=== PATIENT | female | born 1975 | race American Indian/Alaskan Native ===

== ENCOUNTER 2020-02-03 20:35 | Emergency (ER) | payer MEDICAID ==
[~2020-02-03] VITALS: Ht 165.1 cm; Wt 82.9 kg
[2020-02-03 21:20] VITALS: BP 153/97
[2020-02-03 21:34] LABS: BASOPHILS % (AUTO) 0.4 % (0-1); EOSINOPHILS % (AUTO) 0.3 % (0-6); HEMATOCRIT 46.8 % (35.0-45.0); HEMOGLOBIN 15.4 g/dl (12.0-16.0); LYMPHOCYTES # (AUTO) 1.3 X10'3 (1.1-4.8); LYMPHOCYTES % (AUTO) 15.5 % (21-51); MEAN CORPUSCULAR HEMOGLOBIN 28.6 PG (27.0-31.0); MEAN CORPUSCULAR HGB CONC 32.8 g/dL (33.0-36.5); MEAN CORPUSCULAR VOLUME 87.1 FL (78-98); MEAN PLATELET VOLUME 9.6 FL (7.4-10.4); MONOCYTES # (AUTO) 0.5 X10'3 (0-0.9); MONOCYTES % (AUTO) 5.7 % (2-12); NEUTROPHILS # (AUTO) 6.6 X10'3 (1.8-7.7); NEUTROPHILS % (AUTO) 78.1 % (42-75); PLATELET COUNT 254 X10'3 (140-440); RED BLOOD COUNT 5.38 X10'6 (4.20-5.60); RED CELL DISTRIBUTION WIDTH 14.6 % (11.5-14.5); WHITE BLOOD COUNT 8.5 X10'3 (4.5-11.0)
[2020-02-03 21:50] LABS: ALANINE AMINOTRANSFERASE 15 U/L (12-78); ALBUMIN 3.6 G/DL (3.4-5.0); ALBUMIN/GLOBULIN RATIO 0.8 (1.1-1.5); ALKALINE PHOSPHATASE 89 IU/L (46-116); AMYLASE 38 U/L (25-115); ANION GAP 9 (8-16); ASPARTATE AMINO TRANSFERASE 17 U/L (10-37); BILIRUBIN,TOTAL 0.4 MG/DL (0.1-1.0); BLOOD UREA NITROGEN 11 MG/DL (7-18); BUN/CREATININE RATIO 10.2 (6.6-38.0); CALCIUM 9.9 MG/DL (8.5-10.1); CHLORIDE 106 MMOL/L (99-107); CREATININE 1.08 MG/DL (0.40-0.90); GLUCOSE 111 MG/DL (70-104); LIPASE 192 U/L (73-393); POTASSIUM 3.3 MMOL/L (3.5-5.1); SODIUM 144 MMOL/L (135-145); TOTAL CARBON DIOXIDE 29.1 MMOL/L (24-32); TOTAL PROTEIN 8.2 G/DL (6.4-8.2); eGFR 55 ML/MIN
[2020-02-03 22:02] LABS: HCG SERUM QL NEGATIVE
--- NOTE | 2020-02-03 22:20 | NUR ---
asked pt if she could provide a urine test to check for and changes of a UTI, pt states "i haven't peed in 2 days, i cant keep anything down" she then get's up and grabs her purse and walks away despite being encouraged to wait for a doctor to see her. Pt continues to walk away. Dr. Montgomery and RACHEL Bearden made aware. Pt left without being seen.
== END 2020-02-03 22:23 | disposition left against medical advice (07) ==
LOC: ER 20:36
DX: R10.9 Unspecified abdominal pain (principal); R11.10 Vomiting, unspecified; Z53.21 Procedure and treatment not carried out due to patient leaving prior to being seen by health care provider
CPT/HCPCS: 36415; 80053; 82150; 83690; 84703; 85025; 85610

== ENCOUNTER 2020-03-17 12:23 | Inpatient (IN) | payer MEDICAID ==
[~2020-03-17] VITALS: Ht 162.6 cm; Wt 88.3 kg
[2020-03-17 13:05] LABS: BASOPHILS % (AUTO) 0.1 % (0-1); EOSINOPHILS % (AUTO) 0 % (0-6); HEMATOCRIT 55.4 % (35.0-45.0); LYMPHOCYTES % (AUTO) 6.8 % (21-51); MEAN CORPUSCULAR HEMOGLOBIN 29.1 PG (27.0-31.0); MEAN CORPUSCULAR HGB CONC 33.7 g/dL (33.0-36.5); MEAN CORPUSCULAR VOLUME 86.5 FL (78-98); MONOCYTES # (AUTO) 0.6 X10'3 (0-0.9); MONOCYTES % (AUTO) 4.2 % (2-12); NEUTROPHILS # (AUTO) 12.6 X10'3 (1.8-7.7); NEUTROPHILS % (AUTO) 88.9 % (42-75); PLATELET COUNT 346 X10'3 (140-440); RED BLOOD COUNT 6.41 X10'6 (4.20-5.60); RED CELL DISTRIBUTION WIDTH 14.3 % (11.5-14.5); WHITE BLOOD COUNT 14.2 X10'3 (4.5-11.0)
[2020-03-17 13:09] LABS: HEMOGLOBIN 18.7 g/dl (12.0-16.0)
[2020-03-17 13:19] LABS: ALANINE AMINOTRANSFERASE 17 U/L (12-78); ALBUMIN 3.5 G/DL (3.4-5.0); ALBUMIN/GLOBULIN RATIO 0.7 (1.1-1.5); ALKALINE PHOSPHATASE 93 IU/L (46-116); ANION GAP 16 (8-16); ASPARTATE AMINO TRANSFERASE 37 U/L (10-37); BILIRUBIN,TOTAL 1.5 MG/DL (0.1-1.0); BLOOD UREA NITROGEN 68 MG/DL (7-18); CALCIUM 8.9 MG/DL (8.5-10.1); CHLORIDE 75 MMOL/L (99-107); CREATININE 4.26 MG/DL (0.40-0.90); GLUCOSE 159 MG/DL (70-104); SODIUM 130 MMOL/L (135-145); TOTAL CARBON DIOXIDE 39.2 MMOL/L (24-32); TOTAL PROTEIN 8.5 G/DL (6.4-8.2); eGFR 11 ML/MIN
[2020-03-17 13:23] LABS: POTASSIUM 2.3 MMOL/L (3.5-5.1)
[2020-03-17] MEDS ORDERED: ondansetron/PF 4mg/2ml inj IV ONE (13:30)
[2020-03-17] MEDS ORDERED: pantoprazole 40 MG vial IV ONE (13:30)
[2020-03-17] MEDS ORDERED: morphine 2 MG/ML inj. syringe IV PRN ×2 (13:30→19:45)
[2020-03-17] MEDS ORDERED: normal saline 1000ML IV soln IV ONE ×2 (13:30→18:15)
[2020-03-17] MEDS ORDERED: morphine 4 MG/ML inj SYRINge IV ONE (13:30)
[2020-03-17] MEDS ORDERED: piperacillin/tazo 3.375gm/50ml 50 ML IV ONE (13:40)
[2020-03-17] MEDS ORDERED: potassium Cl 10 mEq/100mL bag IV ONE ×2 (13:40→19:10)
[2020-03-17] MEDS ORDERED: potassium CL 10mEq/100ml bag 100 ML IV PRN (19:45)
[2020-03-17] MEDS ORDERED: magnesium hydroxide 30ml (MOM) UD suspension PO PRN (19:45)
[2020-03-17] MEDS ORDERED: acetaminophen 325mg tablet PO PRN (19:45)
[2020-03-17] MEDS ORDERED: magnesium 2GM in 50ml NS 50 ML IV PRN (19:45)
[2020-03-17] MEDS ORDERED: potassium Cl 20 mEq SR tablet PO PRN ×2 (19:45)
[2020-03-17] MEDS ORDERED: mag hydrox/Alum hydrox/simeth 30ml oral suspension PO PRN (19:45)
[2020-03-17] MEDS ORDERED: magnesium Cl slow-release 64mg tablet PO PRN (19:45)
[2020-03-17] MEDS ORDERED: magnesium 4gm in 100ml NS 100 ML IV PRN (19:45)
[2020-03-17] MEDS ORDERED: ondansetron/PF 4mg/2ml inj IV PRN (19:45)
[2020-03-17] MEDS: K and/or MAG REPLACEMENT MC SCH (20:00)
[2020-03-17] MEDS ORDERED: potassium Cl 10 mEq/100mL bag IV SCH (20:15)
[2020-03-17 20:58] LABS: BASOPHILS % (AUTO) 0.1 % (0-1); EOSINOPHILS % (AUTO) 0 % (0-6); HEMATOCRIT 48.9 % (35.0-45.0); HEMOGLOBIN 16.2 g/dl (12.0-16.0); LYMPHOCYTES # (AUTO) 1.2 X10'3 (1.1-4.8); LYMPHOCYTES % (AUTO) 5.7 % (21-51); MEAN CORPUSCULAR HEMOGLOBIN 28.7 PG (27.0-31.0); MEAN CORPUSCULAR HGB CONC 33.1 g/dL (33.0-36.5); MEAN CORPUSCULAR VOLUME 86.9 FL (78-98); MONOCYTES # (AUTO) 1.7 X10'3 (0-0.9); MONOCYTES % (AUTO) 8.2 % (2-12); NEUTROPHILS # (AUTO) 18.1 X10'3 (1.8-7.7); PLATELET COUNT 282 X10'3 (140-440); RED BLOOD COUNT 5.63 X10'6 (4.20-5.60); WHITE BLOOD COUNT 21.1 X10'3 (4.5-11.0)
[2020-03-17 21:15] LABS: ALANINE AMINOTRANSFERASE 57 U/L (12-78); ALBUMIN 2.6 G/DL (3.4-5.0); ALBUMIN/GLOBULIN RATIO 0.7 (1.1-1.5); ALKALINE PHOSPHATASE 72 IU/L (46-116); ANION GAP 10 (8-16); ASPARTATE AMINO TRANSFERASE 117 U/L (10-37); BLOOD UREA NITROGEN 67 MG/DL (7-18); CALCIUM 7.2 MG/DL (8.5-10.1); CHLORIDE 91 MMOL/L (99-107); CREATININE 3.73 MG/DL (0.40-0.90); GLUCOSE 98 MG/DL (70-104); SODIUM 134 MMOL/L (135-145); TOTAL CARBON DIOXIDE 32.7 MMOL/L (24-32); TOTAL PROTEIN 6.2 G/DL (6.4-8.2); eGFR 13 ML/MIN
[2020-03-17] MEDS: normal saline 1000ml 1,000 ML IV SCH (21:45)
--- NOTE | 2020-03-17 21:45 | NUR ---
Patient in room PCU 3014. I have received report from SHANDA RAMOS FROM ED and had the opportunity to ask questions and assume patient care.
[2020-03-17 22:00] VITALS: BP 109/72
[2020-03-17] MEDS: potassium CL 10mEq/100ml bag 100 ML IV PRN ×2 (22:08→23:55)
[2020-03-18] VITALS (15 sets, daily range): BP systolic 96–175; BP diastolic 56–99
[2020-03-18] MEDS: potassium CL 10mEq/100ml bag 100 ML IV PRN ×3 (02:38→09:10)
[2020-03-18 06:10] LABS: BASOPHILS % (AUTO) 0.1 % (0-1); EOSINOPHILS % (AUTO) 0.1 % (0-6); HEMATOCRIT 43.3 % (35.0-45.0); HEMOGLOBIN 14.3 g/dl (12.0-16.0); LYMPHOCYTES # (AUTO) 1.1 X10'3 (1.1-4.8); LYMPHOCYTES % (AUTO) 6.2 % (21-51); MEAN CORPUSCULAR HGB CONC 33.2 g/dL (33.0-36.5); MEAN CORPUSCULAR VOLUME 87.4 FL (78-98); MONOCYTES # (AUTO) 1.3 X10'3 (0-0.9); MONOCYTES % (AUTO) 7.2 % (2-12); NEUTROPHILS # (AUTO) 15.4 X10'3 (1.8-7.7); NEUTROPHILS % (AUTO) 86.4 % (42-75); PLATELET COUNT 247 X10'3 (140-440); RED BLOOD COUNT 4.95 X10'6 (4.20-5.60); RED CELL DISTRIBUTION WIDTH 14.2 % (11.5-14.5); WHITE BLOOD COUNT 17.8 X10'3 (4.5-11.0)
--- NOTE | 2020-03-18 06:14 | NUR ---
Problems reprioritized. Patient report given, questions answered & plan of care reviewed with JACQUELINE RAMOS.
[2020-03-18 06:23] LABS: ALANINE AMINOTRANSFERASE 59 U/L (12-78); ALBUMIN 2.2 G/DL (3.4-5.0); ALBUMIN/GLOBULIN RATIO 0.7 (1.1-1.5); ALKALINE PHOSPHATASE 61 IU/L (46-116); ANION GAP 12 (8-16); ASPARTATE AMINO TRANSFERASE 121 U/L (10-37); BILIRUBIN,TOTAL 0.9 MG/DL (0.1-1.0); BLOOD UREA NITROGEN 71 MG/DL (7-18); BUN/CREATININE RATIO 17.8 (6.6-38.0); CALCIUM 7.4 MG/DL (8.5-10.1); CHLORIDE 92 MMOL/L (99-107); GLUCOSE 92 MG/DL (70-104); MAGNESIUM 2.2 MG/DL (1.5-2.4); SODIUM 135 MMOL/L (135-145); TOTAL CARBON DIOXIDE 30.8 MMOL/L (24-32); TOTAL PROTEIN 5.5 G/DL (6.4-8.2); eGFR 12 ML/MIN
--- NOTE | 2020-03-18 06:26 | NUR ---
[place]rientee documentation: I have reviewed and agree with all interventions, assessments performed and documented by Abebe RAMOS. [place] Medication Administration: For this medication-pass time frame, all medication were reviewed, dispensed, administered and documented per hospital policy by Abebe RAMOS.
--- NOTE | 2020-03-18 06:32 | NUR ---
Patient in room PCU 3014. I have received report from Ciara RN/Abebe RN and had the opportunity to ask questions and assume patient care. Pt sleeping comfortably at change of shift.
--- NOTE | 2020-03-18 06:39 | NUR ---
Paged Dr Villela re: critical K+ 3.0 PAGER ID: [phone] MESSAGE: Harry Ma [id number] Critical am K+ 3.0, same as 03/17 pm draw K+ 3.0, I will continue with replacement protocol. Thanks Apryl Cabrera [phone]
[2020-03-18] MEDS: normal saline 1000ml 1,000 ML IV SCH ×2 (07:56→22:10)
[2020-03-18] MEDS: K and/or MAG REPLACEMENT MC SCH ×2 (08:02→20:00)
[2020-03-18] MEDS ORDERED: LIDOcaine Viscous 15ml cup ONE (10:25)
[2020-03-18] MEDS ORDERED: MIDAZolam 5mg/5ml vial ONE ×2 (10:25→15:29)
[2020-03-18] MEDS ORDERED: fentaNYL/PF 50MCG/1 ML 2ML syringe ONE (10:25)
[2020-03-18] MEDS ORDERED: OMEP20TA5 PO (11:52)
[2020-03-18] MEDS ORDERED: LISI1TAB51 PO (11:52)
[2020-03-18] MEDS ORDERED: ONDA4TAB6 PO (11:52)
[2020-03-18] MEDS ORDERED: LIDOcaine 1% (10mg/ml) 2ml vial ONE (13:44)
--- NOTE | 2020-03-18 15:00 | NUR ---
Pt left for OR, pre op check list complete, report called to RACHEL Whaley.
[2020-03-18 15:20] LABS: PARTIAL THROMBOPLASTIN TIME 29 SECONDS (22-32)
[2020-03-18] MEDS ORDERED: fentaNYL /PF 50mcg/ml 5ml ampule ONE ×2 (15:29→20:44)
[2020-03-18] MEDS ORDERED: rocuronium 10mg/ml inj IV ONE ×4 (15:31→21:35)
--- NOTE | 2020-03-18 15:41 | NUR ---
Attempted to place extended PIV for blood draws prior to pt going to OR. Pt veins not compatible with extended or midline as vessels are too deep and too small. Blood draw completed during attempt. Apryl RAMOS notified Cordelia Steel PICC RN
[2020-03-18] MEDS ORDERED: NORepinephrine 1 mg/ml inj IV ONE (16:05)
[2020-03-18] MEDS ORDERED: NORepinephrine 8 MG in NS 250ml IV soln IV SCH (16:10)
[2020-03-18] MEDS ORDERED: propofol inj 20 ML IV ONE (16:25)
[2020-03-18] MEDS ORDERED: albumin (Human) 5% 250ml 250 ML IV ONE ×2 (16:34)
--- NOTE | 2020-03-18 16:46 | NUR ---
Malnutrition consult. Current wt as 77 kg (no wt method), documented weight January 2020 82 kg on chair scale. No diet, only ice chips. Pending karly fundoplication. Presented with gastric outlet obstruction secondary to volvulus per H&P. Has been vomiting when eating and having abdominal pain both likely contributing to acute poor appetite and poor PO intake. Recommend new weight for accurate assessment of wt loss. Addendum: 03/18/20 at [address] Amended: Links added.
[2020-03-18] MEDS: clindamycin phosphate 150mg/ml inj. ONE ×2 (17:02→20:01)
[2020-03-18] MEDS: gentamicin 40 MG/1 ML inj ONE ×2 (17:02→20:02)
[2020-03-18] MEDS ORDERED: ringers solution, lacted 1,000 ML IV SCH (17:16)
[2020-03-18] MEDS ORDERED: HYDROmorphone inj. 0.5 MG/0.5 ML DISP.SYRIN IV PRN (17:20)
[2020-03-18] MEDS ORDERED: NORepinephrine 8mg/ 250ml NS 250 ML IV SCH (17:20)
[2020-03-18] MEDS ORDERED: fentaNYL/PF 50MCG/1 ML 2ML syringe IV PRN (17:20)
[2020-03-18] MEDS ORDERED: morphine 4 MG/ML inj SYRINge IV PRN (17:20)
[2020-03-18] MEDS ORDERED: morphine 2 MG/ML inj. syringe IV PRN (17:20)
[2020-03-18] MEDS ORDERED: ondansetron/PF 4mg/2ml inj IV PRN (17:20)
--- NOTE | 2020-03-18 18:12 | NUR ---
Problems reprioritized. Patient report given, questions answered & plan of care reviewed with RACHEL Urbina/Abebe RN. Informed nurses that patient is currently in OR.
--- NOTE | 2020-03-18 21:22 | NUR ---
Received to room 2007, accompanied by anesthesia and surgical crew. Placed on ventilator, to court monitor, arterial line and CVP pressure monitored. Santos cath to gravity drainage. Dressings are dry and intact. See assessment record. All drugs are infusing via central line.
[2020-03-18] MEDS: FENTANYL-0.9 % NACL/PF 100 ML IV PRN (21:44)
[2020-03-18] MEDS: midazolam 100mg in NS 100ml 100 ML IV SCH (21:44)
[2020-03-18] MEDS: NORepinephrine 8mg/ 250ml NS 250 ML IV SCH (22:07)
[2020-03-18 22:11] LABS: ABG BASE EXCESS -1.6 mmol/L (-2.0-2.0); ABG HCO3 22.7 mmol/L (22.0-26.0); ABG OXYGEN SATURATION 98.9 % (94-97); ABG PCO2 (T) 36.6 mmHg (32.0-45.0); ABG PO2 (T) 208.5 mmHg (75.0-100.0); FCOHb 0.3 % (0.0-3.9); FMetHb 0.3 % (0.0-1.5); FO2Hb 98.3 % (94-97); PATIENT TEMPERATURE 36.7; PEEP 5 cm H2O; RESPIRATORY RATE 10 b/min; TIDAL VOLUME 600 mL; TOTAL HEMOGLOBIN 13.3 G/dl (12.0-16.0)
[2020-03-18] MEDS ORDERED: dextrose ORAL solution 15 GM/59 ML bottle PO PRN ×2 (23:10)
[2020-03-18] MEDS ORDERED: glucagon, human recombinant 1mg kit SUBCUT PRN (23:10)
[2020-03-18] MEDS ORDERED: dextrose 50%-water 50ml dispensing syringe IV PRN ×2 (23:10)
[2020-03-18] MEDS ORDERED: insulin Lispro (HumaLOG) vial - multi-dose SQ SCH (23:10)
[2020-03-18] MEDS ORDERED: MESSAGE TO PHARMACY PO ONE (23:10)
[2020-03-19] VITALS (23 sets, daily range): BP systolic 50–118; BP diastolic 42–79
[2020-03-19 01:17] LABS: BASOPHILS % (AUTO) 0.1 % (0-1); EOSINOPHILS % (AUTO) 0 % (0-6); HEMATOCRIT 35.8 % (35.0-45.0); HEMOGLOBIN 11.9 g/dl (12.0-16.0); LYMPHOCYTES # (AUTO) 0.9 X10'3 (1.1-4.8); LYMPHOCYTES % (AUTO) 6.9 % (21-51); MEAN CORPUSCULAR HEMOGLOBIN 28.8 PG (27.0-31.0); MEAN CORPUSCULAR HGB CONC 33.2 g/dL (33.0-36.5); MEAN PLATELET VOLUME 10.1 FL (7.4-10.4); MONOCYTES # (AUTO) 0.5 X10'3 (0-0.9); MONOCYTES % (AUTO) 3.8 % (2-12); NEUTROPHILS # (AUTO) 10.9 X10'3 (1.8-7.7); NEUTROPHILS % (AUTO) 89.2 % (42-75); PLATELET COUNT 200 X10'3 (140-440); RED BLOOD COUNT 4.11 X10'6 (4.20-5.60); RED CELL DISTRIBUTION WIDTH 14.1 % (11.5-14.5); WHITE BLOOD COUNT 12.3 X10'3 (4.5-11.0)
[2020-03-19] MEDS: piperacillin/tazo 3.375gm/50ml 50 ML IV SCH ×3 (01:23→17:10)
[2020-03-19] MEDS: pantoprazole 40MG/NS 100ML BAG 100 ML IV SCH ×2 (01:23→05:41)
[2020-03-19] MEDS: dextrose 5%-1/2 normal saline 1,000 ML IV SCH ×3 (01:23→17:10)
[2020-03-19 01:33] LABS: ALANINE AMINOTRANSFERASE 52 U/L (12-78); ALBUMIN/GLOBULIN RATIO 0.8 (1.1-1.5); ALKALINE PHOSPHATASE 43 IU/L (46-116); ANION GAP 8 (8-16); ASPARTATE AMINO TRANSFERASE 80 U/L (10-37); BILIRUBIN,TOTAL 0.7 MG/DL (0.1-1.0); BLOOD UREA NITROGEN 61 MG/DL (7-18); BUN/CREATININE RATIO 19.4 (6.6-38.0); CALCIUM 7.1 MG/DL (8.5-10.1); CHLORIDE 101 MMOL/L (99-107); CREATININE 3.14 MG/DL (0.40-0.90); GLUCOSE 132 MG/DL (70-104); MAGNESIUM 1.7 MG/DL (1.5-2.4); PHOSPHORUS 4.6 MG/DL (2.3-4.5); SODIUM 136 MMOL/L (135-145); TOTAL CARBON DIOXIDE 26.8 MMOL/L (24-32); TOTAL PROTEIN 4.4 G/DL (6.4-8.2); eGFR 16 ML/MIN
[2020-03-19 01:35] LABS: POTASSIUM 2.8 MMOL/L (3.5-5.1)
[2020-03-19] MEDS ORDERED: magnesium 4gm in 100ml NS 100 ML IV PRN (01:40)
[2020-03-19] MEDS ORDERED: magnesium 2GM in 50ml NS 50 ML IV PRN (01:40)
[2020-03-19] MEDS: potassium Cl 20mEq/100mL bag 100 ML IV PRN ×4 (02:03→07:24)
[2020-03-19] MEDS: FENTANYL-0.9 % NACL/PF 100 ML IV PRN ×2 (02:10→09:21)
[2020-03-19 02:35] LABS: ABG BASE EXCESS 3.3 mmol/L (-2.0-2.0); ABG HCO3 26.5 mmol/L (22.0-26.0); ABG OXYGEN SATURATION 97.9 % (94-97); ABG PCO2 (T) 35.2 mmHg (32.0-45.0); ABG PO2 (T) 111.4 mmHg (75.0-100.0); FCOHb 0.1 % (0.0-3.9); FMetHb 0.2 % (0.0-1.5); FO2Hb 97.6 % (94-97); PATIENT TEMPERATURE 36.8; PEEP 5 cm H2O; TOTAL HEMOGLOBIN 12.9 G/dl (12.0-16.0)
--- NOTE | 2020-03-19 06:30 | NUR ---
Problems reprioritized. Patient report given, questions answered & plan of care reviewed with Emani RAMOS.
--- NOTE | 2020-03-19 06:30 | NUR ---
Patient in room CICU 2006. I have received report from Selina RAMOS and had the opportunity to ask questions and assume patient care.
[2020-03-19] MEDS: K and/or MAG REPLACEMENT MC SCH ×2 (08:00→19:40)
[2020-03-19] MEDS: midazolam 100mg in NS 100ml 100 ML IV SCH (08:15)
[2020-03-19] MEDS: NORepinephrine 8mg/ 250ml NS 250 ML IV SCH ×2 (08:16→19:18)
[2020-03-19] MEDS ORDERED: albumin (Human) 5% 250ml 250 ML IV ONE (13:45)
[2020-03-19 13:54] LABS: ALANINE AMINOTRANSFERASE 41 U/L (12-78); ALBUMIN 1.8 G/DL (3.4-5.0); ALBUMIN/GLOBULIN RATIO 0.6 (1.1-1.5); ALKALINE PHOSPHATASE 50 IU/L (46-116); ANION GAP 8 (8-16); ASPARTATE AMINO TRANSFERASE 63 U/L (10-37); BILIRUBIN,TOTAL 0.8 MG/DL (0.1-1.0); BLOOD UREA NITROGEN 54 MG/DL (7-18); BUN/CREATININE RATIO 17.4 (6.6-38.0); CALCIUM 7.3 MG/DL (8.5-10.1); CHLORIDE 102 MMOL/L (99-107); CREATININE 3.11 MG/DL (0.40-0.90); GLUCOSE 127 MG/DL (70-104); SODIUM 135 MMOL/L (135-145); TOTAL CARBON DIOXIDE 25.5 MMOL/L (24-32); TOTAL PROTEIN 4.6 G/DL (6.4-8.2); eGFR 16 ML/MIN
[2020-03-19 13:57] LABS: POTASSIUM 4.1 MMOL/L (3.5-5.1)
[2020-03-19] MEDS: dexmedetomidine/D5W 100mL 100 ML IV SCH (14:20)
--- NOTE | 2020-03-19 14:33 | NUR ---
TPN consult/malnutrition consult f/u: New scaled weight was obtained, pt currently 84.2 kg, this is +2.2 kg since January. Pt appears with no wt loss. No documented significant decrease in muscle strength or edema. Pt currently does not meet criteria for malnutrition. Pt admit for gastric outlet obstruction, volvulus, SHAWNA, and hypokalemia. Pt now s/p reduction of hiatal hernia with repair of diaphragmatic hernia, subtotal gastrectomy with retrocolic Charlene-en-Y reconstruction, Toupet partial posterior wrap, repair of incisional hernia, and jejunostomy placement. TPN recommendations below have been d/w clinical pharmacist. NG tube in place for suction. Will continue to follow closely. Recommendations: 1) Continuous 3:1 Clinimix-E 5/20 2L bag with 100 mL 20% intralipids with goal rate of 90 mL/hr to provide: 2160 mL total volume/day, 103 g AA, 411 g dextrose (dext load 3.39 mg/kg/min), 21 g lipids (10% kcal), and 2015 total kcal 2) Prealbumin and TG q Monday/ 3) Daily weights 4) Monitor renal labs and TPN tolerance 5) PO diet advancement as medically indicated per physician Addendum: 03/19/20 at [address] Amended: Links added.
[2020-03-19] MEDS ORDERED: Dextrose 10%-water IV solution 1,000 ML IV PRN (14:57)
[2020-03-19] MEDS: ipratropium/albuterol 3ml nebule NEB SCH ×3 (15:32→22:55)
--- NOTE | 2020-03-19 16:20 | NUR ---
TF Consult: Trickle JTF to start and remain at 10ml/hr per surgeon. Recs below. Will monitor for EN tolerance and bowel function post-op. TPN consult/malnutrition consult f/u: New scaled weight was obtained, pt currently 84.2 kg, this is +2.2 kg since January. Pt appears with no wt loss. No documented significant decrease in muscle strength or edema. Pt currently does not meet criteria for malnutrition. Pt admit for gastric outlet obstruction, volvulus, SHAWNA, and hypokalemia. Pt now s/p reduction of hiatal hernia with repair of diaphragmatic hernia, subtotal gastrectomy with retrocolic Charlene-en-Y reconstruction, Toupet partial posterior wrap, repair of incisional hernia, and jejunostomy placement. TPN recommendations below have been d/w clinical pharmacist. NG tube in place for suction. Will continue to follow closely. Recommendations: 1) Continuous 3:1 Clinimix-E 5/20 2L bag with 100 mL 20% intralipids with goal rate of 90 mL/hr to provide: 2160 mL total volume/day, 103 g AA, 411 g dextrose (dext load 3.39 mg/kg/min), 21 g lipids (10% kcal), and 2015 total kcal 2) Trickle JTF per surgeon at 10ml/hr using Vital High Protein; to provide 240ml fluid, 202ml free water, 240kcals, and 21g protein. 3) Prealbumin and TG q Monday/; daily wts 4) Monitor for EN/TPN tolerance w/ SHAWNA DX and s/p extensive GI surgery w/ J-tube placement 5) PO diet advancement as medically indicated per physician Addendum: 03/19/20 at [address] Amended: Links added.
[2020-03-19] MEDS ORDERED: POTASSIUM BICARB 20meq eff tab 20 MEQ TABLET.EFF PO PRN ×2 (17:40)
[2020-03-19] MEDS ORDERED: acetaminophen 325mg/10.15ml oral unit dose solution PO PRN (17:40)
--- NOTE | 2020-03-19 18:00 | NUR ---
Patient in room CICU 2006. I have received report from Mana RAMOS and had the opportunity to ask questions and assume patient care. Dr Rocha at the bedside assessing patient. No new orders rec'd.
--- NOTE | 2020-03-19 18:00 | NUR ---
[facility] ROBB Hutton called requesting information. Stated that I would need to clarify with family due to patient unable to sign release at this time. She states she is agreeable and provided her cell # [phone]. Unable to complete during shift, left message for next shift.
--- NOTE | 2020-03-19 18:45 | NUR ---
Problems reprioritized. Patient report given, questions answered & plan of care reviewed with Rubina RAMOS.
[2020-03-19] MEDS ORDERED: normal saline 1000ml 1,000 ML IV ONE (19:15)
[2020-03-19] MEDS: pantoprazole 40 MG vial IV SCH (20:21)
[2020-03-19] MEDS ORDERED: fat emulsion 20% IV 100 ML, MVI, adult No.4 with vit. K 10 ML, Trace element-5 inj. 1 M... IV SCH ×4 (21:00)
[2020-03-19] MEDS ORDERED: insulin glargine (Lantus) pen - multi-dose SQ SCH (21:00)
--- NOTE | 2020-03-19 23:34 | NUR ---
Spoke with family regarding PA in [facility] wanting information. The family states "do not give information to provider."
[2020-03-20] VITALS (23 sets, daily range): BP systolic 89–125; BP diastolic 41–70
[2020-03-20] MEDS: piperacillin/tazo 3.375gm/50ml 50 ML IV SCH ×4 (00:24→23:56)
[2020-03-20] MEDS: ipratropium/albuterol 3ml nebule NEB SCH ×6 (03:00→23:06)
[2020-03-20 03:20] LABS: BASOPHILS % (AUTO) 0.1 % (0-1); EOSINOPHILS % (AUTO) 0.1 % (0-6); HEMATOCRIT 30.3 % (35.0-45.0); HEMOGLOBIN 10.2 g/dl (12.0-16.0); LYMPHOCYTES # (AUTO) 1.1 X10'3 (1.1-4.8); LYMPHOCYTES % (AUTO) 6.6 % (21-51); MEAN CORPUSCULAR HEMOGLOBIN 29.7 PG (27.0-31.0); MEAN CORPUSCULAR HGB CONC 33.6 g/dL (33.0-36.5); MEAN CORPUSCULAR VOLUME 88.5 FL (78-98); MEAN PLATELET VOLUME 10.4 FL (7.4-10.4); MONOCYTES # (AUTO) 1.1 X10'3 (0-0.9); MONOCYTES % (AUTO) 6.5 % (2-12); NEUTROPHILS % (AUTO) 86.7 % (42-75); PLATELET COUNT 224 X10'3 (140-440); RED BLOOD COUNT 3.42 X10'6 (4.20-5.60); RED CELL DISTRIBUTION WIDTH 14.4 % (11.5-14.5); WHITE BLOOD COUNT 17.3 X10'3 (4.5-11.0)
[2020-03-20] MEDS: NORepinephrine 8mg/ 250ml NS 250 ML IV SCH ×3 (03:37→22:47)
[2020-03-20 03:39] LABS: ALANINE AMINOTRANSFERASE 33 U/L (12-78); ALBUMIN 1.8 G/DL (3.4-5.0); ALBUMIN/GLOBULIN RATIO 0.6 (1.1-1.5); ALKALINE PHOSPHATASE 47 IU/L (46-116); ANION GAP 7 (8-16); ASPARTATE AMINO TRANSFERASE 52 U/L (10-37); BILIRUBIN,TOTAL 0.5 MG/DL (0.1-1.0); BLOOD UREA NITROGEN 49 MG/DL (7-18); BUN/CREATININE RATIO 16.2 (6.6-38.0); CALCIUM 7.4 MG/DL (8.5-10.1); CHLORIDE 103 MMOL/L (99-107); CREATININE 3.02 MG/DL (0.40-0.90); GLUCOSE 172 MG/DL (70-104); MAGNESIUM 1.8 MG/DL (1.5-2.4); POTASSIUM 3.4 MMOL/L (3.5-5.1); PREALBUMIN 7.2 MG/DL (19-36); SODIUM 136 MMOL/L (135-145); TOTAL CARBON DIOXIDE 25.6 MMOL/L (24-32); TOTAL PROTEIN 4.7 G/DL (6.4-8.2); TRIGLYCERIDES 83 MG/DL (20-135); eGFR 17 ML/MIN
[2020-03-20 04:05] LABS: ABG BASE EXCESS 0.3 mmol/L (-2.0-2.0); ABG HCO3 23.6 mmol/L (22.0-26.0); ABG OXYGEN SATURATION 97.5 % (94-97); ABG PCO2 (T) 33.8 mmHg (32.0-45.0); ABG PO2 (T) 103.9 mmHg (75.0-100.0); FCOHb 0.3 % (0.0-3.9); FMetHb 0.1 % (0.0-1.5); FO2Hb 97.1 % (94-97); PATIENT TEMPERATURE 37.3; PEEP 5 cm H2O; RESPIRATORY RATE 10 b/min; TIDAL VOLUME 600 mL; TOTAL HEMOGLOBIN 10.7 G/dl (12.0-16.0)
[2020-03-20] MEDS: potassium Cl 20mEq/100mL bag 100 ML IV PRN ×2 (04:26→05:48)
[2020-03-20] MEDS: dexmedetomidine/D5W 100mL 100 ML IV SCH ×2 (06:38→13:31)
[2020-03-20] MEDS: FENTANYL-0.9 % NACL/PF 100 ML IV PRN ×2 (06:38→17:22)
[2020-03-20] MEDS: dextrose 5%-1/2 normal saline 1,000 ML IV SCH (06:57)
[2020-03-20] MEDS: K and/or MAG REPLACEMENT MC SCH ×2 (08:00→19:52)
[2020-03-20] MEDS: pantoprazole 40 MG vial IV SCH ×2 (08:50→19:54)
[2020-03-20] MEDS: diatr meglu/diatrizoate 30ml oral sol.-(3 dose) bottle PO SCH ×2 (11:23→21:00)
--- NOTE | 2020-03-20 15:23 | NUR ---
Radiologist called and asked me to report a small hydropneumothorax on CT scan. Called Dr Rocha, and he states thats from the surgery and the CT scan looks ok
[2020-03-20] MEDS ORDERED: glucagon, human recombinant 1mg kit SUBCUT PRN (15:25)
[2020-03-20] MEDS ORDERED: dextrose ORAL solution 15 GM/59 ML bottle PO PRN ×2 (15:25)
[2020-03-20] MEDS ORDERED: MESSAGE TO PHARMACY PO ONE (15:25)
[2020-03-20] MEDS ORDERED: insulin regular, human U-100 3ml vial - multi-dose SQ SCH (15:25)
[2020-03-20] MEDS ORDERED: dextrose 50%-water 50ml dispensing syringe IV PRN ×2 (15:25)
[2020-03-20] MEDS: fat emulsion 20% IV 100 ML, MVI, adult No.4 with vit. K 10 ML, Trace element-5 inj. 1 M... IV SCH ×4 (16:32)
[2020-03-20] MEDS: midazolam 100mg in NS 100ml 100 ML IV SCH (16:33)
--- NOTE | 2020-03-20 18:20 | NUR ---
Patient in room CICU 2006. I have received report from Rajat RAMOS and had the opportunity to ask questions and assume patient care.
[2020-03-20] MEDS: lactobacillus rhamnosus 10,000 MMU CELLS/CAPSULE PO SCH (19:52)
[2020-03-20] MEDS: insulin glargine (Lantus) pen - multi-dose SQ SCH (19:57)
[2020-03-20] MEDS ORDERED: diatr meglu/diatrizoate 30ml oral sol.-(3 dose) bottle PO SCH (21:00)
[2020-03-21] VITALS (24 sets, daily range): BP systolic 95–136; BP diastolic 42–96
[2020-03-21] MEDS: dexmedetomidine/D5W 100mL 100 ML IV SCH ×4 (02:04→21:19)
[2020-03-21] MEDS: ipratropium/albuterol 3ml nebule NEB SCH ×6 (03:21→23:00)
[2020-03-21 03:28] LABS: BASOPHILS % (AUTO) 0.2 % (0-1); EOSINOPHILS # (AUTO) 0.2 X10'3 (0-0.9); EOSINOPHILS % (AUTO) 1.6 % (0-6); HEMATOCRIT 27.5 % (35.0-45.0); LYMPHOCYTES # (AUTO) 1.1 X10'3 (1.1-4.8); LYMPHOCYTES % (AUTO) 7.9 % (21-51); MEAN CORPUSCULAR HEMOGLOBIN 28.9 PG (27.0-31.0); MEAN CORPUSCULAR HGB CONC 32.7 g/dL (33.0-36.5); MEAN CORPUSCULAR VOLUME 88.5 FL (78-98); MEAN PLATELET VOLUME 9.9 FL (7.4-10.4); MONOCYTES # (AUTO) 1.1 X10'3 (0-0.9); MONOCYTES % (AUTO) 8.2 % (2-12); NEUTROPHILS # (AUTO) 11.5 X10'3 (1.8-7.7); NEUTROPHILS % (AUTO) 82.1 % (42-75); PLATELET COUNT 208 X10'3 (140-440); RED BLOOD COUNT 3.11 X10'6 (4.20-5.60); RED CELL DISTRIBUTION WIDTH 14.3 % (11.5-14.5); WHITE BLOOD COUNT 13.9 X10'3 (4.5-11.0)
[2020-03-21 03:37] LABS: ALANINE AMINOTRANSFERASE 27 U/L (12-78); ALBUMIN 1.5 G/DL (3.4-5.0); ALBUMIN/GLOBULIN RATIO 0.5 (1.1-1.5); ALKALINE PHOSPHATASE 56 IU/L (46-116); ANION GAP 7 (8-16); ASPARTATE AMINO TRANSFERASE 38 U/L (10-37); BILIRUBIN,TOTAL 0.4 MG/DL (0.1-1.0); BLOOD UREA NITROGEN 43 MG/DL (7-18); BUN/CREATININE RATIO 17.9 (6.6-38.0); CALCIUM 7.5 MG/DL (8.5-10.1); CHLORIDE 104 MMOL/L (99-107); GLUCOSE 157 MG/DL (70-104); MAGNESIUM 1.7 MG/DL (1.5-2.4); POTASSIUM 3.5 MMOL/L (3.5-5.1); SODIUM 136 MMOL/L (135-145); TOTAL CARBON DIOXIDE 24.8 MMOL/L (24-32); TOTAL PROTEIN 4.8 G/DL (6.4-8.2); eGFR 22 ML/MIN
[2020-03-21] MEDS: FENTANYL-0.9 % NACL/PF 100 ML IV PRN (03:54)
[2020-03-21 03:55] LABS: ABG BASE EXCESS -1.7 mmol/L (-2.0-2.0); ABG HCO3 22.2 mmol/L (22.0-26.0); ABG OXYGEN SATURATION 96.9 % (94-97); ABG PCO2 (T) 34.4 mmHg (32.0-45.0); ABG PO2 (T) 90.7 mmHg (75.0-100.0); FCOHb 0.3 % (0.0-3.9); FMetHb 0.3 % (0.0-1.5); FO2Hb 96.3 % (94-97); PATIENT TEMPERATURE 36.9; PEEP 5 cm H2O; RESPIRATORY RATE 10 b/min; TIDAL VOLUME 600 mL; TOTAL HEMOGLOBIN 9.7 G/dl (12.0-16.0)
[2020-03-21] MEDS: pantoprazole 40 MG vial IV SCH ×2 (07:58→20:00)
[2020-03-21] MEDS: piperacillin/tazo 3.375gm/50ml 50 ML IV SCH ×2 (07:58→16:08)
[2020-03-21] MEDS: lactobacillus rhamnosus 10,000 MMU CELLS/CAPSULE PO SCH (07:59)
[2020-03-21] MEDS: K and/or MAG REPLACEMENT MC SCH ×2 (07:59→20:00)
[2020-03-21 10:03] LABS: CLARITY,URINE CLOUDY (Clear); COLOR,URINE YELLOW (Yellow); GLUCOSE, URINE 250 mg/dl (Neg); KETONES,URINE NEGATIVE (Neg); LEUKOCYTE ESTERASE ,URINE SMALL (Neg); NITRITES, URINE NEGATIVE (Neg); OCCULT BLOOD,URINE MODERATE (Neg); PROTEIN,URINE TRACE mg/dl (Neg); UROBILINOGEN,URINE 0.2 E.U/dL (0.2-1.0)
[2020-03-21 10:15] LABS: UA COLLECTION TYPE FOLEY CATH
[2020-03-21 10:16] LABS: BACTERIA,URINE NONE SEEN /HPF (Neg); MUCUS STRANDS FEW /LPF (Neg); RENAL CELLS, URINE MODERATE /HPF; SQUAMOUS EPITHELIAL CELL,UR FEW /LPF (FEW); URIC ACID CRYSTALS 1+ /HPF (NEGATIVE); YEAST MANY /HPF (NEGATIVE)
[2020-03-21 10:40] LABS: UA EOSINOPHILS NO EOS /HPF
[2020-03-21] MEDS ORDERED: naloxone 0.4 mg/ml inj IV PRN (12:35)
[2020-03-21] MEDS ORDERED: CADD PCA waste documentation MC PRN (12:35)
[2020-03-21] MEDS ORDERED: HYDROmorphone/NS 1 mg/ml CADD 50 ML IV SCH (13:00)
--- NOTE | 2020-03-21 13:04 | NUR ---
Tube feed increased to 20 per MD orders
[2020-03-21] MEDS ORDERED: acetaminophen 325mg/10.15ml oral unit dose solution JT PRN (13:18)
[2020-03-21] MEDS ORDERED: dextrose ORAL solution 15 GM/59 ML bottle JT PRN ×2 (13:18)
[2020-03-21] MEDS ORDERED: mag hydrox/Alum hydrox/simeth 30ml oral suspension JT PRN (13:19)
[2020-03-21] MEDS ORDERED: magnesium hydroxide 30ml (MOM) UD suspension JT PRN (13:20)
--- NOTE | 2020-03-21 14:45 | NUR ---
Patient extubated per MD orders. Placed on room air and saturating 100%. Patient still not following directions and at risk of pulling out lines and tubes. Will leave restraints on for now
--- NOTE | 2020-03-21 15:00 | NUR ---
patient going back and forth between apologizing and threatening with abusive foul language. Patient is oriented to self and place. Patient is anxious and agitated, with periods of crying, and intermittently trying to attack staff. notified. restraints still on for safety Addendum: 03/21/20 at 1707 by Rajat Degroot RN Patient is deniz Addendum: 03/21/20 at 1707 by Rajat Degroot RN Patient is manipulative, stating shes my friend, and then trying to hit me after i take one restraint off
[2020-03-21] MEDS: HYDROmorphone/NS 1 mg/ml CADD 50 ML IV SCH ×5 (15:30→23:00)
[2020-03-21] MEDS: fat emulsion 20% IV 100 ML, MVI, adult No.4 with vit. K 10 ML, Trace element-5 inj. 1 M... IV SCH ×4 (16:08)
[2020-03-21] MEDS: NORepinephrine 8mg/ 250ml NS 250 ML IV SCH (16:11)
[2020-03-21] MEDS: heparin, porcine 5000 units/ml vial SQ SCH (20:00)
[2020-03-21] MEDS: lactobacillus rhamnosus 10,000 MMU CELLS/CAPSULE JT SCH (20:00)
[2020-03-21] MEDS: sennosides/docusate sodium tablet JT SCH (20:00)
[2020-03-21] MEDS: docusate sodium 100mg/10ml UD cup JT SCH (20:00)
[2020-03-21] MEDS: insulin glargine (Lantus) pen - multi-dose SQ SCH (21:00)
[2020-03-22] VITALS (43 sets, daily range): BP systolic 88–144; BP diastolic 44–91
[2020-03-22] MEDS: piperacillin/tazo 3.375gm/50ml 50 ML IV SCH ×3 (00:27→16:10)
[2020-03-22] MEDS: dexmedetomidine/D5W 100mL 100 ML IV SCH ×6 (00:27→22:56)
[2020-03-22] MEDS: HYDROmorphone/NS 1 mg/ml CADD 50 ML IV SCH ×6 (01:00→11:00)
[2020-03-22] MEDS: ipratropium/albuterol 3ml nebule NEB SCH ×5 (02:58→23:00)
[2020-03-22 03:24] LABS: BASOPHILS # (AUTO) 0.1 X10'3 (0-0.2); BASOPHILS % (AUTO) 0.7 % (0-1); EOSINOPHILS # (AUTO) 0.4 X10'3 (0-0.9); EOSINOPHILS % (AUTO) 3.5 % (0-6); HEMATOCRIT 30.6 % (35.0-45.0); HEMOGLOBIN 10.1 g/dl (12.0-16.0); LYMPHOCYTES # (AUTO) 1.2 X10'3 (1.1-4.8); LYMPHOCYTES % (AUTO) 9.4 % (21-51); MEAN CORPUSCULAR HEMOGLOBIN 29.4 PG (27.0-31.0); MEAN CORPUSCULAR HGB CONC 33.1 g/dL (33.0-36.5); MEAN CORPUSCULAR VOLUME 88.9 FL (78-98); MEAN PLATELET VOLUME 9.2 FL (7.4-10.4); MONOCYTES # (AUTO) 1.4 X10'3 (0-0.9); MONOCYTES % (AUTO) 10.9 % (2-12); NEUTROPHILS # (AUTO) 9.5 X10'3 (1.8-7.7); NEUTROPHILS % (AUTO) 75.5 % (42-75); PLATELET COUNT 225 X10'3 (140-440); RED BLOOD COUNT 3.44 X10'6 (4.20-5.60); RED CELL DISTRIBUTION WIDTH 14.2 % (11.5-14.5); WHITE BLOOD COUNT 12.6 X10'3 (4.5-11.0)
[2020-03-22 03:25] LABS: ALANINE AMINOTRANSFERASE 24 U/L (12-78); ALBUMIN 1.5 G/DL (3.4-5.0); ALBUMIN/GLOBULIN RATIO 0.4 (1.1-1.5); ALKALINE PHOSPHATASE 72 IU/L (46-116); ANION GAP 3 (8-16); ASPARTATE AMINO TRANSFERASE 38 U/L (10-37); BILIRUBIN,TOTAL 0.5 MG/DL (0.1-1.0); BLOOD UREA NITROGEN 41 MG/DL (7-18); BUN/CREATININE RATIO 21.6 (6.6-38.0); CALCIUM 7.7 MG/DL (8.5-10.1); CHLORIDE 104 MMOL/L (99-107); GLUCOSE 127 MG/DL (70-104); MAGNESIUM 1.7 MG/DL (1.5-2.4); POTASSIUM 3.5 MMOL/L (3.5-5.1); SODIUM 135 MMOL/L (135-145); TOTAL CARBON DIOXIDE 28.1 MMOL/L (24-32); eGFR 29 ML/MIN
[2020-03-22] MEDS: docusate sodium 100mg/10ml UD cup JT SCH ×2 (07:24→20:52)
[2020-03-22] MEDS: lactobacillus rhamnosus 10,000 MMU CELLS/CAPSULE JT SCH ×2 (07:24→20:54)
[2020-03-22] MEDS: pantoprazole 40 MG vial IV SCH ×2 (07:25→20:51)
[2020-03-22] MEDS: sennosides/docusate sodium tablet JT SCH ×2 (07:25→20:54)
[2020-03-22] MEDS: heparin, porcine 5000 units/ml vial SQ SCH ×2 (07:26→20:53)
[2020-03-22] MEDS: K and/or MAG REPLACEMENT MC SCH ×2 (08:00→20:00)
--- NOTE | 2020-03-22 09:21 | NUR ---
0600- Received report assumed care of patient. 0700- Assessment completed, patient confused but pleasant, removed her water wings from R and L upper arms and immobilizer from R leg, will continue to reassess patient mental status and safety. 0830- swinging right leg out of bed, pulled right hand out of mitten and restraint, "get her the fuck away from me, dont let her touch me" speaking about sitter, able to distract her with pictures on my phone, reapplied restraint when able to get arm back in position, patient very strong. applied SCD's to bilat legs. Moved BP cuff from left lower leg to left lower arm, resulting in change of BP, will continue to monitor.
[2020-03-22] MEDS: fluconazole-Diflucan 200mg/NS 100 ML IV SCH (10:08)
--- NOTE | 2020-03-22 11:56 | NUR ---
F/u (03/22): Pt extubated tolerating TPN at goal and trickle JTF at this time. No BM yet this admit receiving colace and senna post-op. Currently AOx1 per EMR. Nutrition support recs updated below w/ extubation; no changes at this time given s/p significant GI surgery, wound healing needs, and initial PALB 7.2 03/20. Will monitor for TPN/EN tolerance and adjustments as medically indicated. Would benefit from PASTRY FINISHER BSS prior to PO diet advancement once medically cleared for PO given ALOC. Will continue to monitor. Recommendations: 1) Continuous 3:1 Clinimix-E 5/20 2L bag with 100 mL 20% intralipids with goal rate of 90 mL/hr to provide: 2160 mL total volume/day, 103 g AA, 411 g dextrose (dext load 3.39 mg/kg/min), 21 g lipids (10% kcal), and 2015 total kcals. 2) Trickle JTF per surgeon at 10ml/hr using Vital High Protein; to provide 240ml fluid, 202ml free water, 240kcals, and 21g protein. IF to advance and off PN; recommend change to Vital AF at 85ml/hr goal rate. 3) Prealbumin and TG q Monday/; daily wts 4) Monitor for EN/TPN tolerance w/ SHAWNA DX and s/p extensive GI surgery w/ J-tube placement 5) routine bowel care per MD post-op 6) PO diet advancement as medically indicated to low-residue 7) PASTRY FINISHER BSS once to advance PO diet w/ ALOC s/p extubation Addendum: 03/22/20 at [address] Amended: Links added.
--- NOTE | 2020-03-22 13:29 | NUR ---
1200- Dr Rocha rounded, patient remains confused, patient was saying "did you talk to my family," Md offered to call them if she likes, patient then trying to sit up in bed, "You wanna go, lets go" in a fighting stance. MD ordered for cadd to be dc'd due to patient confusion and aggression and have PRN dilaudid, also change dressing to abd daily and PRN and remove the packing if present. 1330- Removed dressing and packing along incision, cleaned with chlorhexidine swab, applied vaseline gauze and covered with abd dressing and bordered gauze and placed fenestrated optifoan around j tube. Incision clean, no signs of infection noted. Patient remains very labile with moods. Calling me "cunt" repeatedly and trying to pinch and dig nails into me, took a round house kick to my head but missed. As soon as dressing change was done patient immediately calmed down but no clearer.
[2020-03-22] MEDS: HYDROmorphone 1 mg/ml syringe IV PRN ×2 (14:54→21:05)
--- NOTE | 2020-03-22 18:25 | NUR ---
Patient in room CICU 2006. I have received report from Saman RAMOS and had the opportunity to ask questions and assume patient care. Pt received asleep, on room air with oxygen saturation 98% Rhythm is sinus without ectopy HR 74/min. Right IJ central line is transduced. Pt is receiving precedex , TPN & is on levophed., Santos drains clear yellow urine. No distress at shift change. Sitter at bedside.
[2020-03-22] MEDS: fat emulsion 20% IV 100 ML, MVI, adult No.4 with vit. K 10 ML, Trace element-5 inj. 1 M... IV SCH ×4 (19:56)
[2020-03-22] MEDS: insulin glargine (Lantus) pen - multi-dose SQ SCH (20:49)
[2020-03-22] MEDS ORDERED: ipratropium/albuterol 3ml nebule NEB PRN (23:35)
[2020-03-23] VITALS (41 sets, daily range): BP systolic 81–127; BP diastolic 40–83
[2020-03-23] MEDS: piperacillin/tazo 3.375gm/50ml 50 ML IV SCH ×4 (00:03→23:34)
[2020-03-23] MEDS: dexmedetomidine/D5W 100mL 100 ML IV SCH ×6 (01:48→21:35)
[2020-03-23 03:04] LABS: BASOPHILS % (AUTO) 0.4 % (0-1); EOSINOPHILS # (AUTO) 0.4 X10'3 (0-0.9); EOSINOPHILS % (AUTO) 3.6 % (0-6); HEMATOCRIT 26.3 % (35.0-45.0); HEMOGLOBIN 8.8 g/dl (12.0-16.0); LYMPHOCYTES # (AUTO) 1.2 X10'3 (1.1-4.8); LYMPHOCYTES % (AUTO) 11.8 % (21-51); MEAN CORPUSCULAR HEMOGLOBIN 29.5 PG (27.0-31.0); MEAN CORPUSCULAR HGB CONC 33.5 g/dL (33.0-36.5); MEAN PLATELET VOLUME 8.7 FL (7.4-10.4); MONOCYTES # (AUTO) 1.3 X10'3 (0-0.9); MONOCYTES % (AUTO) 12.9 % (2-12); NEUTROPHILS # (AUTO) 7.5 X10'3 (1.8-7.7); NEUTROPHILS % (AUTO) 71.3 % (42-75); PLATELET COUNT 247 X10'3 (140-440); RED CELL DISTRIBUTION WIDTH 13.9 % (11.5-14.5); WHITE BLOOD COUNT 10.5 X10'3 (4.5-11.0)
[2020-03-23 03:17] LABS: ALBUMIN 1.4 G/DL (3.4-5.0); ANION GAP 6 (8-16); BLOOD UREA NITROGEN 34 MG/DL (7-18); BUN/CREATININE RATIO 22.4 (6.6-38.0); CALCIUM 7.7 MG/DL (8.5-10.1); CHLORIDE 104 MMOL/L (99-107); CREATININE 1.52 MG/DL (0.40-0.90); GLUCOSE 147 MG/DL (70-104); MAGNESIUM 1.6 MG/DL (1.5-2.4); POTASSIUM 3.4 MMOL/L (3.5-5.1); SODIUM 137 MMOL/L (135-145); TRIGLYCERIDES 86 MG/DL (20-135); eGFR 37 ML/MIN
[2020-03-23] MEDS: HYDROmorphone 1 mg/ml syringe IV PRN ×4 (03:39→21:05)
[2020-03-23] MEDS: K and/or MAG REPLACEMENT MC SCH ×2 (08:00→23:29)
[2020-03-23] MEDS: NORepinephrine 8mg/ 250ml NS 250 ML IV SCH ×2 (08:33→16:35)
[2020-03-23] MEDS: docusate sodium 100mg/10ml UD cup JT SCH ×2 (08:34→20:00)
[2020-03-23] MEDS: pantoprazole 40 MG vial IV SCH ×2 (08:34→20:14)
[2020-03-23] MEDS: heparin, porcine 5000 units/ml vial SQ SCH ×2 (08:35→20:22)
[2020-03-23] MEDS: sennosides/docusate sodium tablet JT SCH ×3 (08:35→21:36)
[2020-03-23] MEDS: fluconazole-Diflucan 200mg/NS 100 ML IV SCH (08:35)
[2020-03-23] MEDS: lactobacillus rhamnosus 10,000 MMU CELLS/CAPSULE JT SCH ×3 (08:35→21:36)
[2020-03-23] MEDS: fat emulsion 20% IV 100 ML, MVI, adult No.4 with vit. K 10 ML, Trace element-5 inj. 1 M... IV SCH ×4 (13:32)
[2020-03-23] MEDS: diatr meglu/diatrizoate 30ml oral sol.-(3 dose) bottle PO SCH ×3 (16:41→20:53)
[2020-03-23] MEDS ORDERED: diatr meglu/diatrizoate 30ml oral sol.-(3 dose) bottle JT SCH (18:00)
--- NOTE | 2020-03-23 18:20 | NUR ---
Patient in room CICU 2006. I have received report and had the opportunity to ask questions and assume patient care. Pt asleep at shift change. Awakens drowsy. Rhythm is sinus. Pt is on room air with 99% oxygen saturation. Midline abdominal incision with clean dry dressing. J tube with trickle tube feedings Vital HP. Right nares [place]em sump tube to low intermittent wall suction, drainage is scant, dark green. Placement is positive.Right IJ with TPN, Precedex & levophed infusing. Santos catheter drains clear yellow urine. No distress at shift change.
[2020-03-23] MEDS: insulin glargine (Lantus) pen - multi-dose SQ SCH (20:42)
[2020-03-24] VITALS (24 sets, daily range): BP systolic 83–130; BP diastolic 43–83
[2020-03-24] MEDS: HYDROmorphone 1 mg/ml syringe IV PRN ×2 (01:01→11:03)
[2020-03-24] MEDS: dexmedetomidine/D5W 100mL 100 ML IV SCH ×5 (02:32→16:11)
[2020-03-24 03:33] LABS: BASOPHILS % (AUTO) 0.3 % (0-1); EOSINOPHILS # (AUTO) 0.3 X10'3 (0-0.9); EOSINOPHILS % (AUTO) 2.5 % (0-6); HEMATOCRIT 26.9 % (35.0-45.0); HEMOGLOBIN 8.9 g/dl (12.0-16.0); LYMPHOCYTES # (AUTO) 1.3 X10'3 (1.1-4.8); LYMPHOCYTES % (AUTO) 10.7 % (21-51); MEAN CORPUSCULAR HGB CONC 32.9 g/dL (33.0-36.5); MEAN CORPUSCULAR VOLUME 88.1 FL (78-98); MEAN PLATELET VOLUME 8.5 FL (7.4-10.4); MONOCYTES # (AUTO) 1.5 X10'3 (0-0.9); MONOCYTES % (AUTO) 11.6 % (2-12); NEUTROPHILS # (AUTO) 9.4 X10'3 (1.8-7.7); NEUTROPHILS % (AUTO) 74.9 % (42-75); PLATELET COUNT 289 X10'3 (140-440); RED BLOOD COUNT 3.06 X10'6 (4.20-5.60); WHITE BLOOD COUNT 12.6 X10'3 (4.5-11.0)
[2020-03-24 03:41] LABS: ALBUMIN 1.5 G/DL (3.4-5.0); ANION GAP 3 (8-16); BLOOD UREA NITROGEN 29 MG/DL (7-18); CALCIUM 7.7 MG/DL (8.5-10.1); CHLORIDE 103 MMOL/L (99-107); CREATININE 1.38 MG/DL (0.40-0.90); GLUCOSE 118 MG/DL (70-104); MAGNESIUM 1.4 MG/DL (1.5-2.4); POTASSIUM 3.6 MMOL/L (3.5-5.1); SODIUM 135 MMOL/L (135-145); TOTAL CARBON DIOXIDE 28.8 MMOL/L (24-32); eGFR 41 ML/MIN
[2020-03-24] MEDS: K and/or MAG REPLACEMENT MC SCH ×2 (07:59→20:00)
[2020-03-24] MEDS: piperacillin/tazo 3.375gm/50ml 50 ML IV SCH ×2 (07:59→15:51)
[2020-03-24] MEDS: fluconazole-Diflucan 200mg/NS 100 ML IV SCH (08:00)
[2020-03-24] MEDS: heparin, porcine 5000 units/ml vial SQ SCH ×2 (08:00→20:28)
[2020-03-24] MEDS: docusate sodium 100mg/10ml UD cup JT SCH ×2 (08:00→20:00)
[2020-03-24] MEDS: pantoprazole 40 MG vial IV SCH ×2 (08:00→20:26)
[2020-03-24] MEDS: NORepinephrine 8mg/ 250ml NS 250 ML IV SCH (08:03)
[2020-03-24] MEDS ORDERED: normal saline 500ml IV soln 500 ML IV ONE (08:25)
[2020-03-24] MEDS ORDERED: albumin (human) 25% 100 ML IV solution IV ONE (12:05)
[2020-03-24] MEDS: fat emulsion 20% IV 100 ML, MVI, adult No.4 with vit. K 10 ML, Trace element-5 inj. 1 M... IV SCH ×4 (12:06)
--- NOTE | 2020-03-24 12:10 | NUR ---
Dr. Rocha by to round on patient, stated to increase her diet to clear liquids but maintain trickle feed and TPN until she is nutritionally stable, if patient continues to do well she can be transferred out of the unit tomorrow
--- NOTE | 2020-03-24 18:15 | NUR ---
Patient in room CICU 2006. I have received report from Lamar RAMOS and had the opportunity to ask questions and assume patient care. Pt is awake watching TV. Uninterested in engaging in conversation. On room air with oxygen saturations 99% RR unlabored. Rhythm remains sinus HR 75 without ectopy BP stable levophed is off. Right IJ central line is transduced. Precedex drip at 0.6mcg/kg/hr. Midline abdominal incision with clean dry dressing. J tube trickle feeds at 20ml/hr. No distress at shift change.
[2020-03-24] MEDS: HYDROcodone/acetaminophen 10/325mg tab PO PRN (18:49)
[2020-03-24] MEDS: sennosides/docusate sodium tablet JT SCH (20:00)
[2020-03-24] MEDS: lactobacillus rhamnosus 10,000 MMU CELLS/CAPSULE JT SCH (20:27)
[2020-03-24] MEDS: insulin glargine (Lantus) pen - multi-dose SQ SCH (21:00)
[2020-03-25] VITALS (15 sets, daily range): BP systolic 113–170; BP diastolic 58–99
[2020-03-25] MEDS: piperacillin/tazo 3.375gm/50ml 50 ML IV SCH ×3 (00:07→16:54)
[2020-03-25] MEDS: HYDROcodone/acetaminophen 10/325mg tab PO PRN ×2 (01:34→08:06)
[2020-03-25] MEDS: HYDROmorphone 1 mg/ml syringe IV PRN ×3 (03:45→22:00)
[2020-03-25 03:54] LABS: ALANINE AMINOTRANSFERASE 35 U/L (12-78); ALBUMIN 2.1 G/DL (3.4-5.0); ALBUMIN/GLOBULIN RATIO 0.6 (1.1-1.5); ALKALINE PHOSPHATASE 72 IU/L (46-116); ANION GAP 6 (8-16); ASPARTATE AMINO TRANSFERASE 60 U/L (10-37); BILIRUBIN,TOTAL 0.5 MG/DL (0.1-1.0); BLOOD UREA NITROGEN 28 MG/DL (7-18); CALCIUM 7.9 MG/DL (8.5-10.1); CHLORIDE 105 MMOL/L (99-107); CREATININE 1.12 MG/DL (0.40-0.90); GLUCOSE 104 MG/DL (70-104); MAGNESIUM 1.7 MG/DL (1.5-2.4); PHOSPHORUS 2.8 MG/DL (2.3-4.5); POTASSIUM 3.6 MMOL/L (3.5-5.1); SODIUM 138 MMOL/L (135-145); TOTAL CARBON DIOXIDE 26.7 MMOL/L (24-32); TOTAL PROTEIN 5.8 G/DL (6.4-8.2); eGFR 53 ML/MIN
[2020-03-25] MEDS: NORepinephrine 8mg/ 250ml NS 250 ML IV SCH (04:06)
--- NOTE | 2020-03-25 06:30 | NUR ---
Patient in room CICU 2006. I have received report from Layla RAMOS and had the opportunity to ask questions and assume patient care. Patient laying in bed watching tv, on room air, vera to gravity TPN infusing to central line, vital signs stable will continue to monitor
[2020-03-25] MEDS: docusate sodium 100mg/10ml UD cup JT SCH ×2 (06:52→20:00)
[2020-03-25] MEDS: sennosides/docusate sodium tablet JT SCH ×2 (06:53→20:00)
[2020-03-25] MEDS: magnesium hydroxide 30ml (MOM) UD suspension PO SCH ×2 (06:54→20:00)
--- NOTE | 2020-03-25 06:56 | NUR ---
Patient complaining of pain at incision site and legs, administered PRN norco will re assess
--- NOTE | 2020-03-25 07:30 | NUR ---
Dr. Hernandez by to round on patient stated to turn off TPN and transfer patient.
--- NOTE | 2020-03-25 07:35 | NUR ---
Tpn rate turned down to [address] Hernandez's order
[2020-03-25] MEDS: K and/or MAG REPLACEMENT MC SCH ×3 (08:00→20:00)
--- NOTE | 2020-03-25 08:00 | NUR ---
Dr. Rocha by to round on patient stated to stop tube feed and that patient can be transferred out of the unit, states that she should be able to go home by Monday
[2020-03-25] MEDS: pantoprazole 40 MG vial IV SCH ×2 (08:04→21:54)
[2020-03-25] MEDS: lactobacillus rhamnosus 10,000 MMU CELLS/CAPSULE JT SCH ×2 (08:04→22:02)
[2020-03-25] MEDS: heparin, porcine 5000 units/ml vial SQ SCH ×2 (08:05→22:03)
[2020-03-25] MEDS: fluconazole-Diflucan 200mg/NS 100 ML IV SCH (08:21)
--- NOTE | 2020-03-25 08:40 | NUR ---
Tube feed stopped per Dr. Rocha's order
--- NOTE | 2020-03-25 09:56 | NUR ---
called pharmacy talked to [place] pharmacist, stated that the TPN is turned down for 6 hrs and as long as blood sugars are stable TPN can be stopped.
--- NOTE | 2020-03-25 10:21 | NUR ---
Jessica RAMOS from [facility] called for report, report given all questions answered and full review of systems
--- NOTE | 2020-03-25 10:34 | NUR ---
called PCU to locate patients valubles they are being taylor up
[2020-03-25] MEDS ORDERED: labetalol 20mg/4ml (5mg/ml) syringe IV ONE (10:50)
[2020-03-25] MEDS ORDERED: cloNIDine 0.1 MG/24 HOUR patch (7 day patch) TD SCH (10:50)
[2020-03-25] MEDS ORDERED: potassium Cl 20 mEq SR tablet PO PRN ×2 (11:00)
[2020-03-25] MEDS ORDERED: magnesium Cl slow-release 64mg tablet PO PRN (11:00)
[2020-03-25] MEDS ORDERED: magnesium 4gm in 100ml NS 100 ML IV PRN (11:00)
[2020-03-25] MEDS ORDERED: potassium CL 10mEq/100ml bag 100 ML IV PRN (11:00)
--- NOTE | 2020-03-25 11:15 | NUR ---
Reassessment: Surgeon cleared pt for PO diet advancement and pt now on a full liquid diet. Per RN trickle tube feed has been discontinued and TPN being weaned off at this time. Per RN pt with a low appetite at this time though would like to hold off on ONS at this time pending patient's PO intake. LBM 03/24, documented with 300 mL stool output. Will continue to follow closely and make recommendations as appropriate. Recommendations: 1) PO diet advancement as medically indicated to low-residue 2) Monitor need for ONS 3) Bowel care per rx 4) Scaled weights per rx Addendum: 03/25/20 at [address] Amended: Links added.
--- NOTE | 2020-03-25 12:35 | NUR ---
Patient in room [facility] 345. I have received report from Shannon RAMOS and had the opportunity to ask questions and assume patient care.patient orientated to room. TPN Dc following blood sugar of 88. Internal jugular line DC and pressure dressing applied. Intact line and no drainage on dressing. Midline dressing CDI. Gtube CDI. patient appeared to be in stabel condition. Catapress ordered from pharmacy, awaiting delivery. will continue to monitor.
--- NOTE | 2020-03-25 18:51 | NUR ---
Problems reprioritized. Patient report given, questions answered & plan of care reviewed with Gab RAMOS cataprvirgilio patch applied to right shoulder. .
--- NOTE | 2020-03-25 18:52 | NUR ---
Patient in room [facility]SE [facility] 345. I have received report from JOSEFINA RAMOS and had the opportunity to ask questions and assume patient care.
[2020-03-25] MEDS: insulin glargine (Lantus) pen - multi-dose SQ SCH (22:11)
[2020-03-26] VITALS: BP 159/98
[2020-03-26] MEDS: piperacillin/tazo 3.375gm/50ml 50 ML IV SCH ×3 (00:18→14:59)
[2020-03-26] MEDS: HYDROmorphone 1 mg/ml syringe IV PRN (03:09)
--- NOTE | 2020-03-26 06:30 | NUR ---
Problems reprioritized. Patient report given, questions answered & plan of care reviewed with ALLIE RAMOS.
[2020-03-26 08:00] VITALS: BP 135/81
[2020-03-26] MEDS: magnesium hydroxide 30ml (MOM) UD suspension PO SCH (08:00)
[2020-03-26] MEDS ORDERED: lisinopril 20mg tablet PO SCH (08:00)
[2020-03-26] MEDS: K and/or MAG REPLACEMENT MC SCH ×2 (08:00)
[2020-03-26] MEDS: sennosides/docusate sodium tablet JT SCH (08:00)
[2020-03-26] MEDS: docusate sodium 100mg/10ml UD cup JT SCH (08:00)
[2020-03-26 08:23] LABS: ALANINE AMINOTRANSFERASE 43 U/L (12-78); ALBUMIN 2.4 G/DL (3.4-5.0); ALBUMIN/GLOBULIN RATIO 0.5 (1.1-1.5); ALKALINE PHOSPHATASE 99 IU/L (46-116); ANION GAP 11 (8-16); ASPARTATE AMINO TRANSFERASE 58 U/L (10-37); BILIRUBIN,TOTAL 0.5 MG/DL (0.1-1.0); BLOOD UREA NITROGEN 20 MG/DL (7-18); BUN/CREATININE RATIO 18.3 (6.6-38.0); CALCIUM 8.4 MG/DL (8.5-10.1); CHLORIDE 103 MMOL/L (99-107); CREATININE 1.09 MG/DL (0.40-0.90); GLUCOSE 82 MG/DL (70-104); MAGNESIUM 1.6 MG/DL (1.5-2.4); PHOSPHORUS 3.9 MG/DL (2.3-4.5); POTASSIUM 4.6 MMOL/L (3.5-5.1); PREALBUMIN 12.4 MG/DL (19-36); SODIUM 138 MMOL/L (135-145); TOTAL CARBON DIOXIDE 24.1 MMOL/L (24-32); TOTAL PROTEIN 6.9 G/DL (6.4-8.2); TRIGLYCERIDES 180 MG/DL (20-135); eGFR 54 ML/MIN
[2020-03-26] MEDS: lactobacillus rhamnosus 10,000 MMU CELLS/CAPSULE JT SCH (08:41)
[2020-03-26] MEDS: heparin, porcine 5000 units/ml vial SQ SCH (08:43)
[2020-03-26] MEDS: fluconazole-Diflucan 200mg/NS 100 ML IV SCH (08:43)
[2020-03-26] MEDS: pantoprazole 40 MG vial IV SCH (08:43)
[2020-03-26] MEDS: HYDROcodone/acetaminophen 10/325mg tab PO PRN (08:53)
[2020-03-26 11:00] VITALS: BP 170/83
[2020-03-26] MEDS ORDERED: HYDR-4353 PO (16:04)
--- NOTE | 2020-03-26 17:00 | NUR ---
Santos cath DC'd. patient tolerated well.
--- NOTE | 2020-03-26 17:46 | NUR ---
patient stable and appropriate for discharge home with family. IV removed, FC removed, all belongings taken from room. new prescription given to patient. Discharge instructions and education given and reviewed with patient, all questions answered. patient is aware of need for follow up and wound care.
[2020-03-27] MEDS ORDERED: fluconazole 100mg tablet PO SCH (08:00)
== END 2020-03-26 17:47 | disposition home or self-care (01) | DRG 220 ==
LOC: ER 12:23 → ED HOLD 19:42 → PCU 3S 21:25 → CICU 2S 03-18 18:39 → SUR 3N 03-25 12:37
PROVIDERS: ADMIT Family Medicine; ATTEND Family Medicine
PROC: 0WQF4ZZ Repair Abdominal Wall, Percutaneous Endoscopic Approach (ICD-10-PCS; 2020-03-18)
PROC: 0BQT4ZZ Repair Diaphragm, Percutaneous Endoscopic Approach (ICD-10-PCS; 2020-03-18)
PROC: 0DJ68ZZ Inspection of Stomach, Via Natural or Artificial Opening Endoscopic (ICD-10-PCS; 2020-03-18)
PROC: 0DB60ZZ Excision of Stomach, Open Approach (ICD-10-PCS; principal; 2020-03-18 15:30)
PROC: 04HK33Z Insertion of Infusion Device into Right Femoral Artery, Percutaneous Approach (ICD-10-PCS; 2020-03-20)
DX: K44.1 Diaphragmatic hernia with gangrene (principal); J96.00 Acute respiratory failure, unspecified whether with hypoxia or hypercapnia; E87.6 Hypokalemia; I10 Essential (primary) hypertension; J90 Pleural effusion, not elsewhere classified; J98.11 Atelectasis; K56.2 Volvulus; N17.9 Acute kidney failure, unspecified; K43.2 Incisional hernia without obstruction or gangrene; Z87.891 Personal history of nicotine dependence; Z93.4 Other artificial openings of gastrointestinal tract status
CPT/HCPCS: 36415; 36600; 43235; 71045; 71250; 74018; 74176; 80048; 80053; 81001; 82570; 82803; 82948; 83036; 83605; 83735; 84100; 84132; 84134; 84145; 84300; 84478; 85018; 85025; 85610; 85730; 86885; 86900; 86901; 87040; 87070; 87081; 87207; 93005; 94002; 94003; 94640; 94760; 97116; 97161; 97530; 99152; 99153; 99285; A4215; A4618; A4620; A6253; A6258; A6407; A6449; A7000; C9113; G0378; J1170; J1450; J1580; J1644; J1815; J2001; J2250; J2405; J2543; J2704; J3010; J3475; J3480; J3490; J7030; J7040; J7120; P9045; P9047; Q9963

== ENCOUNTER 2022-11-19 11:18 | Emergency (ER) | payer MEDICAID ==
[~2022-11-19] VITALS: Ht 165.1 cm; Wt 90.0 kg
[~2022-11-19 11:18] MED LIST: HYDR-4353 PO; LISI1TAB51 PO; OMEP20TA43 PO; ONDA4TAB6 PO
[2022-11-19 11:53] LABS: BASOPHILS % (AUTO) 0.3 % (0-1); EOSINOPHILS # (AUTO) 0.1 X10'3 (0-0.9); HEMATOCRIT 42.3 % (35.0-45.0); HEMOGLOBIN 13.8 g/dl (12.0-16.0); LYMPHOCYTES # (AUTO) 1.7 X10'3 (1.1-4.8); LYMPHOCYTES % (AUTO) 17.6 % (21-51); MEAN CORPUSCULAR HGB CONC 32.8 g/dL (33.0-36.5); MEAN CORPUSCULAR VOLUME 85.4 FL (78-98); MEAN PLATELET VOLUME 8.4 FL (7.4-10.4); MONOCYTES # (AUTO) 0.7 X10'3 (0-0.9); MONOCYTES % (AUTO) 7.3 % (2-12); NEUTROPHILS # (AUTO) 7.1 X10'3 (1.8-7.7); NEUTROPHILS % (AUTO) 73.8 % (42-75); PLATELET COUNT 287 X10'3 (140-440); RED BLOOD COUNT 4.95 X10'6 (4.20-5.60); RED CELL DISTRIBUTION WIDTH 15.3 % (11.5-14.5); WHITE BLOOD COUNT 9.7 X10'3 (4.5-11.0)
--- NOTE | 2022-11-19 12:03 | NUR ---
resident refused to do a UA. patient education provided to resident, continued to refuse, states she does not pee and that we will be waiting forever for her to go so why even bother. stated she knows why she is here, and that she is dehydrated, so she doesn't need to do it and states that she is not going to.
[2022-11-19 12:05] LABS: ALANINE AMINOTRANSFERASE 31 U/L (12-78); ALBUMIN 3.4 G/DL (3.4-5.0); ALBUMIN/GLOBULIN RATIO 0.8 (1.1-1.5); ALKALINE PHOSPHATASE 159 IU/L (46-116); ANION GAP 10 (8-16); ASPARTATE AMINO TRANSFERASE 29 U/L (10-37); BILIRUBIN,TOTAL 0.3 MG/DL (0.1-1.0); BLOOD UREA NITROGEN 12 MG/DL (7-18); BUN/CREATININE RATIO 13.3 (10.0-20.0); CALCIUM 8.7 MG/DL (8.5-10.1); CHLORIDE 107 MMOL/L (99-107); GLUCOSE 92 MG/DL (70-104); LIPASE 72 U/L (73-393); POTASSIUM 3.7 MMOL/L (3.5-5.1); SODIUM 144 MMOL/L (135-145); TOTAL CARBON DIOXIDE 26.8 MMOL/L (24-32); TOTAL PROTEIN 7.9 G/DL (6.4-8.2); eGFR 67 ML/MIN
[2022-11-19 13:58] VITALS: BP 150/94
[2022-11-19] MEDS ORDERED: HYDROcodone/acetaminophen 10/325mg tab PO ONE (14:05)
[2022-11-19] MEDS ORDERED: ondansetron 4mg rapidly disintigrating tab PO ONE (14:05)
[2022-11-19] MEDS ORDERED: iohexol 300mg/ml 100ml inj. ONE (14:59)
[2022-11-19] MEDS ORDERED: HYDR-3973 PO (16:01)
== END 2022-11-19 16:12 | disposition home or self-care (01) ==
LOC: ER 11:19
DX: K46.9 Unspecified abdominal hernia without obstruction or gangrene (principal); R11.2 Nausea with vomiting, unspecified; I10 Essential (primary) hypertension; K21.9 Gastro-esophageal reflux disease without esophagitis; F17.200 Nicotine dependence, unspecified, uncomplicated; Z98.890 Other specified postprocedural states; Z79.899 Other long term (current) drug therapy
CPT/HCPCS: 36415; 74177; 76700; 80053; 83690; 85025; 99285; J3490; Q9967

== ENCOUNTER 2023-01-30 11:11 | Inpatient (IN) | payer MEDICAID ==
[2023-01-27 11:21] LABS: ALBUMIN 3.7 G/DL (3.4-5.0); ALBUMIN/GLOBULIN RATIO 0.8 (1.1-1.5); ALKALINE PHOSPHATASE 172 IU/L (46-116); BLOOD UREA NITROGEN 13 MG/DL (7-18); BUN/CREATININE RATIO 12.1 (10.0-20.0); CALCIUM 9.3 MG/DL (8.5-10.1); CHLORIDE 107 MMOL/L (99-107); CREATININE 1.07 MG/DL (0.40-0.90); PRE OP ALT 27 U/L (30-65); PRE OP ANION GAP 10 (8-16); PRE OP AST 21 U/L (10-37); PRE OP BILIRUB, TOTAL 0.4 MG/DL (0.0-1.0); PRE OP GLUCOSE 122 MG/DL (70-104); PRE OP POTASSIUM 3.4 MMOL/L (3.4-5.1); PRE OP SODIUM 143 MMOL/L (135-145); TOTAL PROTEIN 8.4 G/DL (6.4-8.2); eGFR 55 ML/MIN
[2023-01-27 11:25] LABS: HCG SERUM QL NEGATIVE
[2023-01-27 11:34] LABS: BASOPHILS % (AUTO) 0.5 % (0-1); EOSINOPHILS # (AUTO) 0.1 X10'3 (0-0.9); EOSINOPHILS % (AUTO) 0.9 % (0-6); LYMPHOCYTES # (AUTO) 1.3 X10'3 (1.1-4.8); LYMPHOCYTES % (AUTO) 15.4 % (21-51); MEAN CORPUSCULAR HEMOGLOBIN 28.2 PG (27.0-31.0); MEAN CORPUSCULAR HGB CONC 32.8 g/dL (33.0-36.5); MEAN CORPUSCULAR VOLUME 85.8 FL (78-98); MEAN PLATELET VOLUME 9.1 FL (7.4-10.4); MONOCYTES # (AUTO) 0.5 X10'3 (0-0.9); MONOCYTES % (AUTO) 5.7 % (2-12); NEUTROPHILS # (AUTO) 6.3 X10'3 (1.8-7.7); NEUTROPHILS % (AUTO) 77.5 % (42-75); PRE OP HEMATOCRIT 43.6 % (35.0-45.0); PRE OP HEMOGLOBIN 14.3 g/dL (12.0-16.0); PRE OP PLATELET COUNT 308 X10'3 (140-440); RED BLOOD COUNT 5.09 X10'6 (4.20-5.60)
[~2023-01-30] VITALS: Ht 162.6 cm; Wt 111.9 kg
[2023-01-30] VITALS (24 sets, daily range): BP systolic 128–166; BP diastolic 81–102
[~2023-01-30 11:11] MED LIST changes: -HYDR-4353 PO; -LISI1TAB51 PO; +NO HOME MEDS; -OMEP20TA43 PO; -ONDA4TAB6 PO
[2023-01-30] MEDS ORDERED: ringers solution, lacted 1,000 ML IV SCH ×2 (12:20→13:30)
[2023-01-30] MEDS ORDERED: ceFOXitin 2GM-NS 100mL ADDvant 100 ML IV ONE (12:20)
[2023-01-30] MEDS ORDERED: famotidine 20mg tablet PO ONE (12:20)
[2023-01-30] MEDS ORDERED: morphine 2 MG/ML inj. syringe IV PRN (13:30)
[2023-01-30] MEDS ORDERED: hydrALAZINE 20mg/ml inj. IV PRN (13:30)
[2023-01-30] MEDS ORDERED: fentaNYL/PF 50MCG/1 ML 2ML syringe IV PRN ×2 (13:30)
[2023-01-30] MEDS ORDERED: ondansetron/PF 4mg/2ml inj IV PRN ×2 (13:30→16:50)
[2023-01-30] MEDS ORDERED: morphine 4 MG/ML inj SYRINge IV PRN (13:30)
[2023-01-30] MEDS ORDERED: labetalol 20mg/4ml (5mg/ml) syringe IV PRN (13:30)
[2023-01-30] MEDS ORDERED: clindamycin-Cleocin 900mg/D5W 50 ML BAG IV ONE (14:15)
[2023-01-30] MEDS ORDERED: rocuronium 10mg/ml inj IV ONE (14:15)
[2023-01-30] MEDS ORDERED: propofol 10mg/ml 20ml vial IV ONE (14:15)
[2023-01-30] MEDS ORDERED: gentamicin 40 MG/1 ML inj ONE (14:15)
[2023-01-30] MEDS ORDERED: desflurane 240ml liquid inh. IH ONE (14:15)
[2023-01-30] MEDS ORDERED: acetaminophen 1000 MG/100ml vial IV ONE (14:15)
[2023-01-30] MEDS ORDERED: ondansetron/PF 4mg/2ml inj ONE (14:15)
[2023-01-30] MEDS ORDERED: sugammadex 200mg/2ml injection IV ONE (14:15)
[2023-01-30] MEDS ORDERED: ringers solution, lactated 1000ml IV soln IV ONE (14:15)
[2023-01-30] MEDS ORDERED: labetalol 20mg/4ml (5mg/ml) syringe IV ONE (14:15)
[2023-01-30] MEDS ORDERED: LIDOcaine 2% (20mg/ml) 5ml vial ONE (14:15)
[2023-01-30] MEDS ORDERED: dexamethasone sod phosphate 10mg/ml inj ONE (14:15)
[2023-01-30] MEDS ORDERED: midazolam 1 mg/ML 2ml injection ONE (14:15)
[2023-01-30] MEDS ORDERED: fentaNYL/PF 50MCG/1 ML 2ML syringe ONE (14:15)
[2023-01-30] MEDS ORDERED: famotidine 20mg tablet ONE (14:15)
[2023-01-30] MEDS ORDERED: naloxone 0.4 mg/ml inj IV PRN (16:50)
[2023-01-30] MEDS: potassium CL 20mEq in D5-1/2NS 1,000 ML IV SCH (16:50)
[2023-01-30] MEDS: ketorolac trometh. 30mg/ml inj. IV SCH (20:32)
[2023-01-31] MEDS: HYDROmorphone inj. 0.5 MG/0.5 ML DISP.SYRIN IV PRN ×2 (00:34→10:12)
[2023-01-31] MEDS: ceFAZolin inj. 1,000 MG in dextrose 5%-water 50ml 50 ML IV SCH ×3 (00:37→17:32)
[2023-01-31] MEDS: potassium CL 20mEq in D5-1/2NS 1,000 ML IV SCH ×2 (00:37→16:20)
[2023-01-31 02:00] VITALS: BP 151/79
[2023-01-31] MEDS: ketorolac trometh. 30mg/ml inj. IV SCH ×4 (02:44→21:33)
[2023-01-31 06:00] VITALS: BP 135/88
[2023-01-31] MEDS: HYDROcodone/acetaminophen 5mg/325mg tablet PO PRN ×3 (08:34→23:27)
[2023-01-31 10:00] VITALS: BP 174/92
[2023-01-31 18:00] VITALS: BP 154/97
[2023-01-31] MEDS: magnesium hydroxide 30ml (MOM) UD suspension PO SCH (21:29)
[2023-01-31 22:00] VITALS: BP 140/76
[2023-02-01] MEDS: potassium CL 20mEq in D5-1/2NS 1,000 ML IV SCH ×3 (00:50→16:50)
[2023-02-01] MEDS: ketorolac trometh. 30mg/ml inj. IV SCH ×4 (02:14→19:55)
[2023-02-01 06:00] VITALS: BP 127/80
[2023-02-01 06:39] LABS: BASOPHILS % (AUTO) 0.1 % (0-1); EOSINOPHILS # (AUTO) 0.3 X10'3 (0-0.9); EOSINOPHILS % (AUTO) 4.1 % (0-6); HEMATOCRIT 38.4 % (35.0-45.0); HEMOGLOBIN 12.6 g/dl (12.0-16.0); LYMPHOCYTES # (AUTO) 1.2 X10'3 (1.1-4.8); LYMPHOCYTES % (AUTO) 17.6 % (21-51); MEAN CORPUSCULAR HEMOGLOBIN 28.3 PG (27.0-31.0); MEAN CORPUSCULAR HGB CONC 32.8 g/dL (33.0-36.5); MEAN CORPUSCULAR VOLUME 86.3 FL (78-98); MEAN PLATELET VOLUME 8.8 FL (7.4-10.4); MONOCYTES # (AUTO) 0.5 X10'3 (0-0.9); MONOCYTES % (AUTO) 7.9 % (2-12); NEUTROPHILS # (AUTO) 4.9 X10'3 (1.8-7.7); NEUTROPHILS % (AUTO) 70.3 % (42-75); PLATELET COUNT 251 X10'3 (140-440); RED BLOOD COUNT 4.45 X10'6 (4.20-5.60); RED CELL DISTRIBUTION WIDTH 15.1 % (11.5-14.5); WHITE BLOOD COUNT 6.9 X10'3 (4.5-11.0)
[2023-02-01 06:48] LABS: ALBUMIN 2.5 G/DL (3.4-5.0); ANION GAP 8 (8-16); BLOOD UREA NITROGEN 16 MG/DL (7-18); BUN/CREATININE RATIO 18.2 (10.0-20.0); CALCIUM 7.9 MG/DL (8.5-10.1); CHLORIDE 106 MMOL/L (99-107); CREATININE 0.88 MG/DL (0.40-0.90); GLUCOSE 110 MG/DL (70-104); POTASSIUM 3.8 MMOL/L (3.5-5.1); SODIUM 140 MMOL/L (135-145); TOTAL CARBON DIOXIDE 26.5 MMOL/L (24-32); eGFR 69 ML/MIN
[2023-02-01] MEDS: HYDROcodone/acetaminophen 5mg/325mg tablet PO PRN ×2 (07:12→19:54)
[2023-02-01] MEDS: magnesium hydroxide 30ml (MOM) UD suspension PO SCH ×2 (07:55→19:54)
[2023-02-01 10:00] VITALS: BP 137/74
[2023-02-01 18:00] VITALS: BP 146/87
[2023-02-01 22:00] VITALS: BP 129/84
[2023-02-02] MEDS: potassium CL 20mEq in D5-1/2NS 1,000 ML IV SCH (00:50)
[2023-02-02] MEDS: ketorolac trometh. 30mg/ml inj. IV SCH ×3 (01:58→14:00)
[2023-02-02 06:00] VITALS: BP 147/76
[2023-02-02 06:33] LABS: BASOPHILS % (AUTO) 0.2 % (0-1); EOSINOPHILS # (AUTO) 0.3 X10'3 (0-0.9); EOSINOPHILS % (AUTO) 3.7 % (0-6); HEMOGLOBIN 12.7 g/dl (12.0-16.0); LYMPHOCYTES # (AUTO) 1.3 X10'3 (1.1-4.8); MEAN CORPUSCULAR HEMOGLOBIN 28.4 PG (27.0-31.0); MEAN CORPUSCULAR HGB CONC 32.6 g/dL (33.0-36.5); MEAN CORPUSCULAR VOLUME 87.3 FL (78-98); MEAN PLATELET VOLUME 8.6 FL (7.4-10.4); MONOCYTES # (AUTO) 0.7 X10'3 (0-0.9); MONOCYTES % (AUTO) 8.9 % (2-12); NEUTROPHILS # (AUTO) 5.2 X10'3 (1.8-7.7); NEUTROPHILS % (AUTO) 69.2 % (42-75); PLATELET COUNT 263 X10'3 (140-440); RED BLOOD COUNT 4.47 X10'6 (4.20-5.60); RED CELL DISTRIBUTION WIDTH 15.5 % (11.5-14.5); WHITE BLOOD COUNT 7.5 X10'3 (4.5-11.0)
[2023-02-02 06:45] LABS: ALBUMIN 2.5 G/DL (3.4-5.0); ANION GAP 9 (8-16); BLOOD UREA NITROGEN 14 MG/DL (7-18); BUN/CREATININE RATIO 19.2 (10.0-20.0); CALCIUM 8.5 MG/DL (8.5-10.1); CHLORIDE 107 MMOL/L (99-107); CREATININE 0.73 MG/DL (0.40-0.90); GLUCOSE 101 MG/DL (70-104); SODIUM 142 MMOL/L (135-145); TOTAL CARBON DIOXIDE 26.3 MMOL/L (24-32); eGFR 85 ML/MIN
[2023-02-02] MEDS: HYDROmorphone inj. 0.5 MG/0.5 ML DISP.SYRIN IV PRN (06:59)
[2023-02-02] MEDS: magnesium hydroxide 30ml (MOM) UD suspension PO SCH (09:15)
[2023-02-02] MEDS: HYDROcodone/acetaminophen 5mg/325mg tablet PO PRN (13:49)
[2023-02-02 14:01] VITALS: BP 164/91
== END 2023-02-02 14:35 | disposition home or self-care (01) | DRG 227 ==
LOC: PAS IN 11:11 → ORTHO 4S 19:15
PROVIDERS: ADMIT Surgery; ATTEND Surgery
PROC: 0DNW0ZZ Release Peritoneum, Open Approach (ICD-10-PCS; 2023-01-30)
PROC: 3E0T3BZ Introduction of Anesthetic Agent into Peripheral Nerves and Plexi, Percutaneous Approach (ICD-10-PCS; 2023-01-30)
PROC: 3E0T33Z Introduction of Anti-inflammatory into Peripheral Nerves and Plexi, Percutaneous Approach (ICD-10-PCS; 2023-01-30)
PROC: 0WUF0JZ Supplement Abdominal Wall with Synthetic Substitute, Open Approach (ICD-10-PCS; principal; 2023-01-30 14:15)
DX: K43.2 Incisional hernia without obstruction or gangrene (principal); K66.0 Peritoneal adhesions (postprocedural) (postinfection)
CPT/HCPCS: 36415; 80048; 80053; 82948; 84703; 85025; 87081; 93005; A4215; A4618; A6209; A6258; A6449; A7000; C1781; G0378; J0131; J0690; J0694; J1100; J1170; J1580; J1885; J2250; J2270; J2405; J2704; J3010; J3480; J3490; J7060; J7120

== ENCOUNTER 2023-02-24 06:03 | Inpatient (IN) | payer MEDICAID ==
[2023-02-24] VITALS (41 sets, daily range): BP systolic 93–146; BP diastolic 53–85; PULSE 13–121; RESP 10–24; TEMP 96.8–98.3; O2SAT 93–100
[~2023-02-24] VITALS: Ht 165.1 cm; Wt 109.0 kg
[~2023-02-24 06:03] MED LIST changes: +HYDR-3964 PO; -NO HOME MEDS; +SULF1TAB45 PO; +ceFOXitin 2GM-NS 100mL ADDvant 100 ML IV ONE; +famotidine 20mg tablet PO ONE; +ringers solution, lacted 1,000 ML IV SCH
[2023-02-24 07:59] LABS: BASOPHILS # (AUTO) 0.1 X10'3 (0-0.2); BASOPHILS % (AUTO) 0.6 % (0-1); EOSINOPHILS # (AUTO) 0.3 X10'3 (0-0.9); EOSINOPHILS % (AUTO) 3.3 % (0-6); HEMATOCRIT 37.9 % (35.0-45.0); HEMOGLOBIN 12.2 g/dl (12.0-16.0); LYMPHOCYTES # (AUTO) 1.3 X10'3 (1.1-4.8); LYMPHOCYTES % (AUTO) 14.6 % (21-51); MEAN CORPUSCULAR HEMOGLOBIN 28.1 PG (27.0-31.0); MEAN CORPUSCULAR HGB CONC 32.1 g/dL (33.0-36.5); MEAN CORPUSCULAR VOLUME 87.8 FL (78-98); MEAN PLATELET VOLUME 8.1 FL (7.4-10.4); MONOCYTES # (AUTO) 0.7 X10'3 (0-0.9); MONOCYTES % (AUTO) 7.3 % (2-12); NEUTROPHILS # (AUTO) 6.8 X10'3 (1.8-7.7); NEUTROPHILS % (AUTO) 74.2 % (42-75); PLATELET COUNT 522 X10'3 (140-440); RED BLOOD COUNT 4.32 X10'6 (4.20-5.60); RED CELL DISTRIBUTION WIDTH 14.7 % (11.5-14.5); WHITE BLOOD COUNT 9.2 X10'3 (4.5-11.0)
[2023-02-24 08:54] LABS: APTT 31 SECONDS (22-32); PROTHROMBIN TIME 10.5 SECONDS (9.0-12.0)
[2023-02-24] MEDS ORDERED: gentamicin 40 MG/1 ML inj ONE (09:35)
[2023-02-24] MEDS ORDERED: clindamycin-Cleocin 900mg/D5W 50 ML IV ONE (09:36)
[2023-02-24 09:44] LABS: ALANINE AMINOTRANSFERASE 17 U/L (12-78); ALBUMIN 2.6 G/DL (3.4-5.0); ALBUMIN/GLOBULIN RATIO 0.5 (1.1-1.5); ALKALINE PHOSPHATASE 114 IU/L (46-116); ANION GAP 10 (8-16); ASPARTATE AMINO TRANSFERASE 17 U/L (10-37); BILIRUBIN,TOTAL 0.4 MG/DL (0.1-1.0); BLOOD UREA NITROGEN 21 MG/DL (7-18); BUN/CREATININE RATIO 18.3 (10.0-20.0); CALCIUM 9.1 MG/DL (8.5-10.1); CHLORIDE 105 MMOL/L (99-107); CREATININE 1.15 MG/DL (0.40-0.90); GLUCOSE 114 MG/DL (70-104); POTASSIUM 4.1 MMOL/L (3.5-5.1); SODIUM 138 MMOL/L (135-145); TOTAL CARBON DIOXIDE 23.3 MMOL/L (24-32); TOTAL PROTEIN 7.6 G/DL (6.4-8.2); eCRCL 54 ML/MIN; eGFR 50 ML/MIN
[2023-02-24] MEDS ORDERED: midazolam 1 mg/ML 2ml injection ONE (09:48)
[2023-02-24] MEDS ORDERED: fentaNYL/PF 50MCG/1 ML 2ML syringe ONE ×2 (09:48→10:46)
[2023-02-24] MEDS ORDERED: rocuronium 10mg/ml inj IV ONE (09:49)
[2023-02-24] MEDS ORDERED: propofol inj 20 ML IV ONE (09:49)
[2023-02-24] MEDS ORDERED: LIDOcaine 2% (20mg/ml) 5ml vial ONE (10:03)
[2023-02-24] MEDS ORDERED: sevoflurane 250ml liquid IH ONE (10:03)
[2023-02-24] MEDS ORDERED: ondansetron/PF 4mg/2ml inj IV PRN ×2 (11:00→11:35)
[2023-02-24] MEDS ORDERED: morphine 2 MG/ML inj. syringe IV PRN (11:00)
[2023-02-24] MEDS ORDERED: morphine 4 MG/ML inj SYRINge IV PRN (11:00)
[2023-02-24] MEDS ORDERED: proCHLORperazine 10 MG/2 ml inj IV PRN (11:00)
[2023-02-24] MEDS ORDERED: meperidine/PF 25mg/ml syringe IV PRN ×3 (11:00)
[2023-02-24] MEDS ORDERED: ringers solution, lacted 1,000 ML IV SCH (11:00)
[2023-02-24] MEDS ORDERED: glycopyrrolate 0.2mg/ml inj ONE (11:07)
[2023-02-24] MEDS ORDERED: neostigmine methylsulfate 1 MG/ML 10ml vial ONE (11:07)
--- NOTE | 2023-02-24 11:24 | NUR ---
Received from OR via BED, accompanied by Anesthesiologist DR DIGGS and report given by Anesthesiologist AND BRUSHING MACHINE OPERATOR. PT VERY DROWSY, ABDOMEN W/WOUND VAC W/BLACK FOAM AND CLEAR DRSG COVERING SETTINGS 125MMHG LCS, NO DRAINAGE IN CANISTER. SMALL OPEN AREAS UNDER CLEAR DRSG REDDENED W/CREAM COLORED EDGES NOTED. LEÓN CATHETER TO GRAVITY DRAINAGE W/YELLOW URINE IN DRAINAGE BAG. Addendum: 02/24/23 at 1239 by She Beckford RN Amended: Links added.
[2023-02-24] MEDS ORDERED: naloxone 0.4 mg/ml inj IV PRN (11:35)
[2023-02-24] MEDS ORDERED: ketorolac trometh. 30mg/ml inj. IV PRN (11:35)
--- NOTE | 2023-02-24 12:08 | NUR ---
PT AWAKE, REMOVED HER 0XYGEN AND PULSE OXIMETER. ASSESSMENT ATTEMPTED, ASKED PT IF SHE WAS HAVING ANY PAIN, PT LOOKED AT ME BUT WOULD NOT RESPOND, I ASKED HER IF SHE KNEW WHERE SHE WAS AND IF SHE COULD HEAR ME, PT GLARED AT ME BUT WOULD NOT RESPOND, I TOLD HER I NEEDED TO DO AN ASSESSMENT TO MAKE SURE SHE WAS OKAY AFTER HER SURGERY TODAY, SHE CONTINUED TO GLARE AT ME, I ASKED HER TO SQUEEZE MY HAND AND SHE PUSHED MY HAND AWAY FROM HERS. I HAD THE PRE-OP NURSE WHO PREPPED HER FOR SURGERY THIS MORNING TO COME UP AND ASSESS PT WITH ME, LAURA IRVING RN CAME UP AND ASKED PT IF SHE WAS OKAY AND IF SHE COULD HEAR US, THAT WE NEEDED TO ASSESS HER AFTER HER SURGERY, SHE LOOKED AT LAURA AND SAID YOU WILL ONLY LIE TO ME. WE REASSURED HER WE ARE ONLY HEAR TO HELP HER AND THAT WE WOULD BE LYING, ASKED HER IF SHE WAS IN PAIN, SHE STATED NO. I EXPLAINED TO HER THAT I CAN ONLY HELP HER AND GET PAIN MEDICATION, ICE CHIPS, ANY NEEDS THAT SHE MAY HAVE IF SHE COMMUNICATES WITH ME, Addendum: 02/24/23 at 1246 by She Beckford RN Amended: Links added. Addendum: 02/24/23 at 1248 by She Beckford RN PT SAID SHE WANTED NOTHING AND LOOKED AWAY. ERROR IN SENTENCE ABOVE THAT STATED: WE ARE ONLY HEAR TO HELP HER AND THAT WE WOULD NOT BE LYING.
--- NOTE | 2023-02-24 12:50 | NUR ---
REASSESSED PT, SHE DECLINED PAIN MEDICATION, ICE CHIPS AND STATED SHE DOSEN'T WANT ANYTHING. Addendum: 02/24/23 at 1251 by She Beckford RN Amended: Links added.
--- NOTE | 2023-02-24 14:30 | NUR ---
PT DENIES PAIN AND STATES SHE DOESN'T WANT ANYTHING EXCEPT TO GO HOME. I TOLD HER THAT WE ARE HERE TO HELP HER AND OUR GOAL IS THAT SHE IMPROVES AND GETS WELL AND IS ABLE TO GO HOME SOON SHE CAN. Addendum: 02/24/23 at 1608 by She Beckford RN Amended: Links added.
--- NOTE | 2023-02-24 16:24 | NUR ---
Report called to receiving nurse. Transferred via BED W/1 BAG OF Belongings AND CELL PHONE TO ROOM 4016B BY RN KASSANDRA Roger AND ANOTHER RN. BLL, CALL LIGHT GIVEN TO PT, CHAD BAHENA UP. Special Issues communicated to receiving nurse. YES. Addendum: 02/24/23 at 1705 by She Beckford RN Amended: Links added.
[2023-02-24] MEDS: potassium CL 20mEq in D5-1/2NS 1,000 ML IV SCH ×2 (17:03→22:01)
--- NOTE | 2023-02-24 18:54 | NUR ---
Problems reprioritized. Patient report given, questions answered & plan of care reviewed with Elaine.
[2023-02-24] MEDS: HYDROcodone/acetaminophen 5mg/325mg tablet PO PRN (22:03)
[2023-02-25] VITALS (8 sets, daily range): BP systolic 102–136; BP diastolic 56–79; PULSE 81–103; RESP 16–20; TEMP 97.2–98.4; O2SAT 93–99
[2023-02-25] MEDS: potassium CL 20mEq in D5-1/2NS 1,000 ML IV SCH ×2 (03:35→11:35)
--- NOTE | 2023-02-25 06:46 | NUR ---
Problems reprioritized. Patient report given, questions answered & plan of care reviewed with Flaquita RAMOS. Addendum: 02/25/23 at 0647 by Elaine Salter RN Amended: Links added.
[2023-02-25] MEDS: HYDROcodone/acetaminophen 5mg/325mg tablet PO PRN ×2 (08:54→16:00)
--- NOTE | 2023-02-25 10:19 | NUR ---
PT AGITATED, NONCOMPLIANT. INSITED ON GETTING IN CIVILIAN CLOTHES, REFUSED IV FLUIDS AT THIS TIME. PT AMBULATED AROUD NURSES UNIT x 5 TIMES. PT REQUESTING TO TAKE A SHOWER AND PEPSI. WILL CALL SURGEON
--- NOTE | 2023-02-25 10:41 | NUR ---
Initial: Pt admit for wound dehiscence post hernia repair. Currently POD #1 s/p debridement of abdominal wound with wound VAC placement. Pt on a regular diet and eating well, documented with 100% PO intake of first meal. LBM 8/10 per EMR. Will continue to follow closely and monitor need for nutrition intervention pending trends in PO intake. Recommendations: 1) Continue regular diet 2) Monitor need for ONS/additional protein 3) Routine bowel care 4) Weekly scaled weights Addendum: 02/25/23 at [address] Amended: Links added.
[2023-02-25] MEDS: clindamycin 600mg/D5W 50ml 50 ML IV SCH ×2 (13:03→19:36)
[2023-02-25] MEDS: enoxaparin 40mg/0.4ml syringe SUBCUT SCH (19:38)
[2023-02-26] MEDS: clindamycin 600mg/D5W 50ml 50 ML IV SCH ×4 (02:23→19:18)
[2023-02-26] MEDS: HYDROcodone/acetaminophen 5mg/325mg tablet PO PRN ×3 (02:24→17:52)
[2023-02-26 06:00] VITALS: BP 125/76; PULSE 79; RESP 18; TEMP 97.8; O2SAT 99
[2023-02-26 07:00] VITALS: RESP 14; O2SAT 99
[2023-02-26 10:00] VITALS: BP 119/78; PULSE 61; RESP 18; TEMP 98; O2SAT 97
[2023-02-26] MEDS ORDERED: magnesium hydroxide 30ml (MOM) UD suspension PO ONE (13:05)
[2023-02-26 18:00] VITALS: BP 129/81; PULSE 82; RESP 20; TEMP 97.5; O2SAT 97
[2023-02-26 19:00] VITALS: RESP 16; O2SAT 96
[2023-02-26] MEDS: magnesium hydroxide 30ml (MOM) UD suspension PO SCH (19:17)
[2023-02-26] MEDS: enoxaparin 40mg/0.4ml syringe SUBCUT SCH (19:18)
[2023-02-26 22:00] VITALS: BP 120/72; PULSE 85; RESP 14; TEMP 97.2; O2SAT 98
[2023-02-27] MEDS: clindamycin 600mg/D5W 50ml 50 ML IV SCH ×2 (02:11→08:45)
[2023-02-27] MEDS: HYDROcodone/acetaminophen 5mg/325mg tablet PO PRN ×2 (02:49→13:33)
[2023-02-27 06:00] VITALS: BP_SYST 120; BP_SYST 127; BP_DIAS 63; BP_DIAS 76; PULSE 71; PULSE 91; RESP 18; RESP 21; TEMP 97.7; TEMP 97.9; O2SAT 96; O2SAT 99
--- NOTE | 2023-02-27 06:56 | NUR ---
Problems reprioritized. Patient report given, questions answered & plan of care reviewed with JENNIFER RAMOS.
[2023-02-27 07:15] VITALS: RESP 18
[2023-02-27] MEDS: magnesium hydroxide 30ml (MOM) UD suspension PO SCH (08:46)
[2023-02-27 10:00] VITALS: BP 127/63; PULSE 91; RESP 21; TEMP 97.7; O2SAT 99
--- NOTE | 2023-02-27 11:14 | NUR ---
Patient is refusing labs.
--- NOTE | 2023-02-27 11:22 | NUR ---
Dr Rocha at bedside speaking with patient. Plan to dc home today
--- NOTE | 2023-02-27 12:30 | NUR ---
Midline ABD wound is 9x10.2x4.8 undermining from 3-8=5.8cm with the deepest aspect at 5 o'clock The following was taken from the patients H&P: This 48 yr. old female who underwent ABD hernia repair returned to the hospital with post-operative incisional complication. She was found to have incisional dehiscence with intact hernia repair and returned to the OR for debridement and NPWT placement. She has a history of volvulus requiring surgical intervention, incisional hernia and repair and renal disease. He admits to using tobacco daily. She denies the use of alcohol and illicit drugs. She lives at home with family. Her most recent labs show a WBC of 9.2, HGB 12.2, BUN 21, BG 114 and an albumin of 2.6. She remains admitted for post-operative care. Wound are in for NPWT dressing change with application of home machine in preparation of discharge. The pt. is aware of the intent and agreeable. She states that her pain is controlled at this time. The pt. was able to position herself on the bed supine. The NPWT was found to be adherent to the Midline ABD functioning continuously at -125mmHg with dark red fluid in the collection canister. The NPWT dressing was removed retrieving one piece of intact black, wound cleansed and rinsed. The wound bed is primarily red with a pale base and scattered thin stringy pieces of yellow tissue to the edges, small serosanguineous drainage, no odor, discolored edematous surrounding skin with sutures to the incision superiorly. A new NPWT dressing was applied using one piece of oil emulsion to the wound base with one black foam achieving a seal running at -125mmHg continuous. The pt. decline total body skin assessment stating that she only has the wound to her abdomen. She was assisted to sit up in the bed and her lunch tray given to her on the bedside table. Bed to the lowest position, call light/personal items in reach. Report was given to the primary nurse, the lining caser. Communication was made with the out-patient wound clinic in an effort to provide a continuum of care S/P discharge. Addendum: 02/28/23 at 1013 by Ny Stroud RN Agree with FLUME MAKER WOC documentation
[2023-02-27 13:33] VITALS: RESP 18
--- NOTE | 2023-02-27 15:10 | NUR ---
WOUND VAC EDUCATION PROVIDED BY WOUND CARE 1. Patient instructed to call the Wound Center or their Home Health Agency immediately if: * They notice a change in the color or amount of the fluid in the canister. * Their wound looks more red than usual or has a foul smell. * The skin around their wound looks reddened or irritated. * The dressing feels loose or appears to be loose. * They experience any increase or changes in their pain. * The alarm will not turn off. 2. Patient instructed that they should not be disconnected from suction for more than 2 hours at a time. * If they are not able to get the suction back on, they need to remove the dressing and take all of the foam out of the wound. * Then moisten sterile gauze with normal saline and place on/in the wound. * Change the dressing once a day until arrangements have been made to replace the wound vac dressing. 3. Patient instructed to turn the wound vac machine OFF and call 911 or go to the ED immediately if their canister fills rapidly with blood. 4. If any of these occur while in the hospital tell a nurse immediately. Addendum: 02/27/23 at 1511 by Carmen Granados LVN Amended: Links added.
== END 2023-02-27 13:40 | disposition home or self-care (01) | DRG 813 ==
LOC: PAS 06:03 → PAS IN 11:37 → ORTHO 4S 16:35
PROVIDERS: ADMIT Surgery; ATTEND Surgery
PROC: 0JB80ZZ Excision of Abdomen Subcutaneous Tissue and Fascia, Open Approach (ICD-10-PCS; principal; 2023-02-24 10:03)
DX: T81.31XA Disruption of external operation (surgical) wound, not elsewhere classified, initial encounter (principal); Y83.8 Other surgical procedures as the cause of abnormal reaction of the patient, or of later complication, without mention of misadventure at the time of the procedure; Y92.89 Other specified places as the place of occurrence of the external cause
CPT/HCPCS: 36415; 71045; 80053; 85025; 85610; 85730; A4618; A6449; A6550; A7000; G0378; J0694; J1580; J1650; J1885; J2250; J2704; J2710; J3010; J3480; J3490; J7120

== ENCOUNTER 2023-09-19 08:52 | Outpatient (CLI) | payer MEDICAID ==
[~2023-09-19 08:52] MED LIST changes: -ceFOXitin 2GM-NS 100mL ADDvant 100 ML IV ONE; -famotidine 20mg tablet PO ONE; -ringers solution, lacted 1,000 ML IV SCH
== END 2023-09-19 23:59 | disposition home or self-care (01) ==
LOC: RAD 08:52
PROVIDERS: ATTEND Surgery
DX: T81.89XA Other complications of procedures, not elsewhere classified, initial encounter (principal); K76.89 Other specified diseases of liver; R16.0 Hepatomegaly, not elsewhere classified; N20.0 Calculus of kidney; K57.30 Diverticulosis of large intestine without perforation or abscess without bleeding; Z98.890 Other specified postprocedural states; Y83.8 Other surgical procedures as the cause of abnormal reaction of the patient, or of later complication, without mention of misadventure at the time of the procedure; Y92.89 Other specified places as the place of occurrence of the external cause
CPT/HCPCS: 74176